=== PATIENT | male | born 1960 | race African-American/Black ===

== ENCOUNTER 2020-11-20 14:50 | Inpatient (IN) | payer SELFPAY ==
[~2020-11-20] VITALS: Ht 177.8 cm; Wt 94.3 kg
[2020-11-20] MEDS ORDERED: ASPIRIN CHEWABLE 81 MG TABLET. PO ONE (15:00)
[2020-11-20] MEDS ORDERED: IV NORMAL SALINE 1,000ML 1,000 ML IV ONE (15:00)
--- NOTE | 2020-11-20 15:06 | PHYS DOC ---
Past History Past Medical History: Diabetes, Hypertension, MO Past Surgical History: Tonsillectomy, Other Alcohol Use: None Adult General Chief Complaint Chief Complaint: CHEST PAIN HPI HPI Pt is a 60 M here for chest pain. Pt reports chest pain began upon waking at 9am and is concentrated in his left lateral pectoral region. Also reports some associated left arm tightness, episodes of diaphoresis, nausea, and feeling lightheaded. Does report he has had 2 previous heart attacks and reports his current symptoms are very similar to previous MO presentations. Denies syncopal events, or increased LE edema over the past several days. Does also admit to a PMH of DM, HTN, HLD, Alcoholism. Reports he was off alcohol for 8 years, however has been on a drinking binge over the last couple days as he reports cheating on his and subsequently being caught and going through a break-up. Also admits distant history of cocaine abuse. Denies excessive retching/vomiting, hematemesis, connective tissue disorders. Does admit to having a difficult time procuring his medications recently. Review of Systems Review of Systems See hpi. Physical Exam Physical Exam Constitutional: Well developed, well nourished, no acute distress, non-toxic appearance. complaining of pain on exam HENT: Normocephalic, atraumatic, bilateral external ears normal, oropharynx moist, no oral exudates, nose normal. Eyes: PERRLA, EOMI, conjunctiva normal, no discharge. Neck: Normal range of motion, no tenderness, supple, no stridor. Cardiovascular:Heart rate regular rhythm, no murmur. Radial pulses 2/4 bilaterally, cap refill<2seconds bilaterally, slight pain to palpation of the chest, no LE edema no carotid bruits Lungs & Thorax: Bilateral breath sounds clear to auscultation Abdomen: Bowel sounds normal, soft, no tenderness, no masses, no pulsatile masses. Skin: Warm, dry, no erythema, no rash. Back: No tenderness, no CVA tenderness. Extremities: No tenderness, no cyanosis, no clubbing, ROM intact, no edema. Neurologic: Alert and oriented X 3, normal motor function, normal sensory function, no focal deficits noted. Psychologic: Affect normal, judgement normal, mood normal. Current Patient Data Vital Signs Vital Signs Date Time Temp Pulse Resp B/P (MAP) Pulse Ox O2 Delivery O2 Flow Rate FiO2 11/20/20 14:57 97.6 116 16 156/102 (120) 100 Room Air EKG EKG EKG interpreted by me at 15:01, rate 119, sinus rhythm, normal intervals, no obvious ST elevations/depressions Radiology/Procedures Radiology/Procedures Single AP view of the chest. Comparison: None. Indication: Chest pain Findings: The heart is enlarged. There is no pneumothorax or effusion. No air space or interstitial disease. Impression: 1. No acute cardiopulmonary process. Electronically signed by: Wes Garcia MD (11/20/2020 3:25 PM) [id number] Heart Score C/O Chest Pain: Yes HEART Score for Chest Pain: HEART Score for Chest Pain Response (Comments) Value History Highly Suspicious 2 ECG Normal 0 Age >45 - < 65 1 Risk Factors >3 Risk Factors or Hx CAD 2 Total 5 Risk Factors: Risk Factors: DM, Current or recent (<one month) smoker, HTN, HLP, family history of CAD, obesity. Risk Scores: Risk Factors: DM, Current or recent (<one month) smoker, HTN, HLP, family history of CAD, obesity. Course & Med Decision Making Course & Med Decision Making Pt is a 60M presenting due to concerns of chest pain. Pt was tachycardic and hypertensive on exam. PE was non specific for any abnormalities. CBC, CMP, Tro ponin, Lipase, CXR, and EKG were ordered. Pt was given a full dose of aspirin and nitro for pain control. Initial Troponin was within normal limits and the rest of his laboratory evaluation was non specific for any abnormalities. Given patient's multiple risk factors and alarming story, heart score was discussed and admission was offered. I contacted hospitalist and discussed case at length, he agreed need for admission and accepted patient under his care for further cardiac observation. Patient updated on this and was amenable. Asymptomatic at time of admission. All questions and concerns addressed prior to admission Critical Care Time This patient required critical care. Due to the fact that the patient required a significant amount of one on one physician - patient contact time, ordering and review of studies, arranging urgent treatment with development of a management plan, evaluation of patients response to treatment with frequent reassessments, and discussions with other providers this patient required 35 minutes of critical care time. Critical care time was indicated due to the inherent instability and/or potential for instability in this patient. The critical care time that is allocated to this patient is above and beyond any time spent on any other billable procedures performed on this patient. Dragon Disclaimer Dragon Disclaimer This electronic medical record was generated, in whole or in part, using a voice recognition dictation system. Departure Departure: Impression: Primary Impression: Chest pain, rule out acute myocardial infarction Additional Impression: Alcohol abuse Disposition: ADMITTED INPATIENT Admitting Physician: Jayro Liriano Condition: STABLE Problem Qualifiers NIALL MCKEON DO Nov 20, 2020 15:06
--- NOTE | 2020-11-20 15:09 | EKG ---
[address] [address] Test Date: 2020-11-20 Test Time: 14:55:33 Pat Name: JARED العراقي Department: Room: Gender: M Chaplain: FABIAN : 1960 Requested By: NIALL MCKEON Order Number: [id number] Reading MD: Measurements Intervals [place] Rate: 119 P: 41 OK: 100 QRS: 5 QRSD: 80 T: 12 QT: 312 QTc: 439 Interpretive Statements SINUS TACHYCARDIA OTHERWISE NORMAL ECG RI6.02 No previous ECG available for comparison
[2020-11-20] MEDS ORDERED: NITROGLYCERIN SUBLINGUAL 0.4 MG BOTTLE OF 25. SL PRN ×2 (15:15→16:30)
[2020-11-20 15:27] LABS: BASO % 0 % (0-3); EOS % 0 % (0-3); HEMATOCRIT 43.2 % (39.0-53.0); HEMOGLOBIN 14.5 g/dL (13.0-17.5); LYMPH # 2.2 x10^3/uL (1.0-4.8); LYMPH % 29 % (24-48); MEAN CORPUSCULAR HEMOGLOBIN 30 pg (25-35); MEAN CORPUSCULAR HGB CONC 34 g/dL (31-37); MEAN CORPUSCULAR VOLUME 89 fL (79-100); MONO # 0.6 x10^3/uL (0.0-1.1); MONO % 7 % (0-9); NEUT # 4.8 x10^3uL (1.8-7.7); NEUT % 63 % (31-73); PLATELET COUNT 188 x10^3/uL (140-400); RED BLOOD COUNT 4.87 x10^6/uL (4.30-5.70); RED CELL DISTRIBUTION WIDTH 14.2 % (11.5-14.5); WHITE BLOOD COUNT 7.7 x10^3/uL (4.0-11.0)
--- NOTE | 2020-11-20 15:27 | RAD ---
Single AP view of the chest. Comparison: None. Indication: Chest pain Findings: The heart is enlarged. There is no pneumothorax or effusion. No air space or interstitial disease. Impression: 1. No acute cardiopulmonary process. Electronically signed by: Wes Garcia MD (11/20/2020 3:25 PM) [id number]
[2020-11-20 15:49] LABS: CALCIUM 8.9 mg/dL (8.5-10.1); CREATININE 1.4 mg/dL (0.7-1.3); POTASSIUM 3.6 mmol/L (3.5-5.1)
[2020-11-20 15:54] LABS: ALBUMIN 3.6 g/dL (3.4-5.0); ALBUMIN/GLOBULIN RATIO 0.8 (1.0-1.7); TOTAL BILIRUBIN 0.8 mg/dL (0.2-1.0)
[2020-11-20] MEDS ORDERED: ACETAMINOPHEN 500 MG TABLET PO ONE (16:15)
[2020-11-20] MEDS ORDERED: ACETAMINOPHEN 325 MG TABLET PO PRN (16:30)
[2020-11-20 19:47] VITALS: BP 122/79
[2020-11-20] MEDS ORDERED: clonazePAM 2 MG TABLET PO PRN (20:30)
[2020-11-20] MEDS ORDERED: NICO1PAT25 TD (20:33)
[2020-11-20] MEDS ORDERED: GLIM2TAB7 PO (20:33)
[2020-11-20] MEDS ORDERED: CLON2TAB PO ×2 (20:33)
[2020-11-20] MEDS ORDERED: METF-658 PO (20:33)
[2020-11-20] MEDS ORDERED: LISI1TAB37 PO (20:33)
[2020-11-20] MEDS: metFORMIN XR 500 MG TAB.ER.24H PO SCH (20:58)
[2020-11-20] MEDS: hydroCHLOROthiazide 12.5 MG CAPSULE PO SCH (20:58)
[2020-11-20] MEDS: LISINOPRIL 20 MG TABLET PO SCH (20:58)
[2020-11-20] MEDS: GLIMEPIRIDE 2 MG TABLET PO SCH (20:58)
[2020-11-20] MEDS ORDERED: clonazePAM 2 MG TABLET PO SCH (21:00)
[2020-11-20] MEDS ORDERED: NICOTINE 14MG PATCH. TD SCH (21:00)
[2020-11-20] MEDS ORDERED: NON FORMULARY ITEM (Lisinopril/Hydrochlorothiazide (Lisinopril-Hctz 20-12.5 Mg Tab) 1 TAB) PO SCH (21:00)
[2020-11-20 22:13] VITALS: BP 129/69
[2020-11-21 06:17] VITALS: BP 109/67
--- NOTE | 2020-11-21 08:03 | PDOC2 ---
CARDIAC CONSULT DATE OF CONSULT DOS: DATE: 11/21/20 TIME: 08:00 REASON FOR CONSULT Reason for Consult Chest pain REFERRING PHYSICIAN Referring Physician Dr. Olivares SOURCE Source: Chart review, Patient HPI History of Present Illness This is a 60 yo male who presented secondary to chest pain. Patient reports he woke up yesterday morning with pressure in his central chest. Associated with palpitations. [place] like his heart was beating fast. Has tingling sensation in his left arm. Was also dizzy and diaphoretic. No shortness of breath or nausea/vomiting. Patient is under a lot of stress. Recently from of 25 years and moved here from [place]. Has a history of alcoholism, but had been sober for 8 years until he had a going away green party for himself. Has been drinking for the last 3 weeks intermittently. Has a history of tachycardia. Was seen by a analytic manager about 3 years ago and started on medical therapy. Reports he ran out of the medication and never refilled. HR elevated upon arrival and has has some burst of atrial tach overnight on tele. PAST MEDICAL HISTORY Cardiovascular: HTN, MD, hyperipidemia Psych: Anxiety, Addictions (ETOH), Depression Musculoskeletal: Osteoarthritis Renal/: Chronic renal insuff Endocrine: Diabetes PAST SURGICAL HISTORY Past Surgical History: Tonsillectomy FAMILY HISTORY Family History: Hypertension SOCIAL HISTORY Smoke: <1 pack per day ALCOHOL: other (h/o heavy use. Sober 8 years, began drinking ago recently.) Drugs: None Lives: with Family CURRENT MEDICATIONS Current Medications Current Medications Aspirin (Aspirin Chewable) 324 mg 1X ONCE PO Last administered on 11/20/20at 15:11; Start 11/20/20 at 15:00; Stop 11/20/20 at 15:19; Status DC Sodium Chloride 1,000 ml @ 1,000 mls/hr 1X ONCE IV Last administered on 11/20/20at 15:11; Start 11/20/20 at 15:00; Stop 11/20/20 at 15:59; Status DC Nitroglycerin (Nitrostat) 0.4 mg PRN Q5MIN PRN SL CHEST PAIN Last administered on 11/20/20at 15:23; Start 11/20/20 at 15:15; Stop 11/20/20 at 16:21; Status DC Acetaminophen (Tylenol) 1,000 mg 1X ONCE PO Last administered on 11/20/20at 16:18; Start 11/20/20 at 16:15; Stop 11/20/20 at 16:16; Status DC Acetaminophen (Tylenol) 650 mg PRN Q4HRS PRN PO FEVER > 100.3'F; Start 11/20/20 at 16:30; Stop 11/21/20 at 16:29 Nitroglycerin (Nitrostat) 0.4 mg PRN Q5MIN PRN SL CHEST PAIN; Start 11/20/20 at 16:30; Stop 11/21/20 at 16:29 Clonazepam (KlonoPIN) 2 mg PRN Q6HRS PRN PO ANXIETY / AGITATION Last administered on 11/21/20at 06:13; Start 11/20/20 at 20:30 Clonazepam (KlonoPIN) 2 mg QHS PO Last administered on 11/20/20at 20:57; Start 11/20/20 at 21:00 Glimepiride (Amaryl) 2 mg BID PO Last administered on 11/20/20at 20:58; Start 11/20/20 at 21:00 Metformin HCl (Glucophage Xr) 1,000 mg BIDWMEALS PO ; Start 11/20/20 at 21:00 Nicotine (Nicoderm Cq 14mg Patch) 1 patch QHS TD Last administered on 11/20/20at 20:59; Start 11/20/20 at 21:00 Non-Formulary Medication (Lisinopril/ Hydrochlorothiazide (Lisinopril-Hctz 20- 12.5 Mg Tab)) 1 tab BID PO ; Start 11/20/20 at 21:00; Stop 11/20/20 at 20:40; Status DC Lisinopril (Prinivil) 20 mg BID PO Last administered on 11/20/20at 20:58; Start 11/20/20 at 21:00 Hydrochlorothiazide (Microzide) 12.5 mg BID PO Last administered on 11/20/20at 20:58; Start 11/20/20 at 21:00 Active Scripts Active Reported NICODERM CQ 14mg (Nicotine) 1 Each Patch.td24 1 Patch TD QHS Metformin Hcl Er (Metformin Hcl) 500 Mg Tab.er.24h 2 Tab PO BID Klonopin (Clonazepam) 2 Mg Tablet 1 Tab PO QHS Klonopin (Clonazepam) 2 Mg Tablet 1 Tab PO PRN Q6HRS PRN Glimepiride 2 Mg Tablet 1 Tab PO BID Lisinopril-Hctz 20-12.5 Mg Tab (Lisinopril/Hydrochlorothiazide) 1 Each Tablet 1 Tab PO BID ALLERGIES Allergies: Coded Allergies: No Known Drug Allergies (Unverified , 11/20/20) ROS Review of Systems 14 point ROS conducted with pertinent positives noted above in hPI PHYSICAL EXAM General: Alert, Oriented X3, Cooperative, No acute distress HEENT: Atraumatic, Mucous membr. moist/pink Lungs: Clear to auscultation Heart: Regular rate (SR/ST) Abdomen: Soft Extremities: No edema Skin: No rashes, No breakdown Neuro: Normal speech, Sensation intact Psych/Mental Status: Mental status NL, Mood NL MUSCULOSKELETAL: Osteoarthritic changes both hands VITALS Vital Signs Vital Signs Date Time Temp Pulse Resp B/P (MAP) Pulse Ox O2 Delivery O2 Flow Rate FiO2 11/21/20 06:17 97.8 70 18 109/67 (81) 96 Room Air LABS LABS Laboratory Tests Test 11/20/20 15:03 11/20/20 15:08 11/20/20 19:29 11/20/20 20:15 White Blood Count 7.7 x10^3/uL (4.0-11.0) Red Blood Count 4.87 x10^6/uL (4.30-5.70) Hemoglobin 14.5 g/dL (13.0-17.5) Hematocrit 43.2 % (39.0-53.0) Mean Corpuscular Volume 89 fL (79-100) Mean Corpuscular Hemoglobin 30 pg (25-35) Mean Corpuscular Hemoglobin Concent 34 g/dL (31-37) Red Cell Distribution Width 14.2 % (11.5-14.5) Platelet Count 188 x10^3/uL (140-400) Neutrophils (%) (Auto) 63 % (31-73) Lymphocytes (%) (Auto) 29 % (24-48) Monocytes (%) (Auto) 7 % (0-9) Eosinophils (%) (Auto) 0 % (0-3) Basophils (%) (Auto) 0 % (0-3) Neutrophils # (Auto) 4.8 x10^3uL (1.8-7.7) Lymphocytes # (Auto) 2.2 x10^3/uL (1.0-4.8) Monocytes # (Auto) 0.6 x10^3/uL (0.0-1.1) Eosinophils # (Auto) 0.0 x10^3/uL (0.0-0.7) Basophils # (Auto) 0.0 x10^3/uL (0.0-0.2) Sodium Level 133 mmol/L (136-145) Potassium Level 3.6 mmol/L (3.5-5.1) Chloride Level 96 mmol/L (98-107) Carbon Dioxide Level 27 mmol/L (21-32) Anion Gap 10 (6-14) Blood Urea Nitrogen 14 mg/dL (8-26) Creatinine 1.4 mg/dL (0.7-1.3) Estimated GFR (Cockcroft-Gault) 63.0 BUN/Creatinine Ratio 10 (6-20) Glucose Level 230 mg/dL (70-99) Calcium Level 8.9 mg/dL (8.5-10.1) Total Bilirubin 0.8 mg/dL (0.2-1.0) Aspartate Amino Transf (AST/SGOT) 29 U/L (15-37) Alanine Aminotransferase (ALT/SGPT) 39 U/L (16-63) Alkaline Phosphatase 89 U/L (46-116) Troponin I Quantitative < 0.017 ng/mL (0-0.055) < 0.017 ng/mL (0-0.055) Total Protein 8.0 g/dL (6.4-8.2) Albumin 3.6 g/dL (3.4-5.0) Albumin/Globulin Ratio 0.8 (1.0-1.7) Lipase 65 U/L (73-393) Glucose (Fingerstick) 253 mg/dL (70-99) 223 mg/dL (70-99) Test 11/20/20 22:40 11/21/20 07:37 Troponin I Quantitative < 0.017 ng/mL (0-0.055) Glucose (Fingerstick) 169 mg/dL (70-99) ASSESSMENT/PLAN Assessment/Plan 1. Chest pain, palpitations; atypical. AMI ruled out. Most probably secondary to #2 2. Arrhythmia; tele noted with bursts of atrial tach. H/o tachyarrhythmia; was started on rate control approximately 3 year ago, but stopped taking when his prescription ran out 3. Hypertension; controlled 4. Hyperlipidemia 5. Diabetes, II 6. CKD 7. H/o alcoholism; has been sober until recently. from of 25 years and moved here from [place] 8. Tobaccoism; discussed/encouraged cessation Recommendations Start metoprolol for HR control TSH, lipids Consider outpatient stress test and event monitor Is working on getting insurance coverage Follow up in our office with FINA Thurman APRN Nov 21, 2020 08:03
[2020-11-21] MEDS: GLIMEPIRIDE 2 MG TABLET PO SCH (08:23)
[2020-11-21] MEDS: hydroCHLOROthiazide 12.5 MG CAPSULE PO SCH (08:23)
[2020-11-21] MEDS: metFORMIN XR 500 MG TAB.ER.24H PO SCH (08:23)
[2020-11-21] MEDS: LISINOPRIL 20 MG TABLET PO SCH (08:24)
[2020-11-21] MEDS ORDERED: ASPIRIN ENTERIC COATED 81 MG TABLET.DR. PO SCH (09:00)
[2020-11-21] MEDS ORDERED: METOPROLOL TART IMMED RELEASE 25 MG TABLET. PO SCH (09:00)
[2020-11-21 09:13] VITALS: BP 109/67
--- NOTE | 2020-11-21 11:25 | HP ---
ATTENDING PHYSICIAN: Dr. Liriano. CHIEF COMPLAINT: Chest pain and generalized lightheadedness. HISTORY OF PRESENT ILLNESS: The patient is a 60-year-old gentleman with underlying depression, anxiety, hypertension and diabetes. He also drinks alcohol to excess. He presented to the ED with lateral chest wall pain related to recent binge drinking. He also ran out of his medicines, he has not taken his blood pressure meds. He had generalized weakness. He was admitted for further evaluation, restarting medications and serial cardiac enzymes. PAST MEDICAL HISTORY: Significant for type 2 diabetes, hypertension, HI, tonsillectomy. He has pain addiction, currently getting Suboxone through a pain specialist that is out of town. CURRENT MEDICATIONS: Reviewed. ALLERGIES: He has no known drug allergies. He had been noncompliant. He was scheduled to take Suboxone along with glimepiride, lisinopril, metoprolol. It is unclear how long he has ran out of his medications. He is a smoker. He drinks vodka. FAMILY HISTORY: Noncontributory. SOCIAL HISTORY: Recently from his . He moved here from [place]. He has a son living in town. REVIEW OF SYSTEMS: All other systems were reviewed and turned to be negative. PHYSICAL EXAMINATION: GENERAL: When I saw him this is a pleasant, alert gentleman. INITIAL VITAL SIGNS: Showed a blood pressure of 129/69 mmHg. He was afebrile, pulse 76 and regular, oxygen saturation 97% on room air. HEENT: Head is without trauma. Pupils are reactive. Sclerae nonicteric. Oropharynx clear. NECK: Supple. No bruits identified. LUNGS: Otherwise clear. HEART: Regular heart tones. ABDOMEN: Soft. No guarding or rebound tenderness. EXTREMITIES: Without edema. NEUROLOGIC: Focally intact. No deficits. PERTINENT LABORATORY DATA: EKG is nondiagnostic. Hemoglobin 14.5, white count 7700. Nonfasting blood sugar is 169. First set of cardiac enzymes negative for coronary ischemia. Sodium was 133 mEq, potassium 3.6, creatinine 1.4 mg/dL. ASSESSMENT: 1. This 60-year-old gentleman has atypical chest pain, noncardiac in nature. 2. Gastroesophageal reflux and alcoholic gastritis. 3. Chronic alcoholism. 4. Hypertension. 5. History of substance abuse, on Suboxone. 6. Noncompliance. 7. Type 2 diabetes. 8. Chronic alcoholism and chronic obstructive pulmonary disease. PLAN: 1. Admit to the inpatient unit. 2. Serial cardiac enzymes. 3. Cardiology consultation has already been obtained by ER physician. He will have that later in the morning. 4. Continue home meds. 5. I will write for home meds and prescriptions while he is here. GILMER/ANTHONY DR: Ceci TID: [id number]
[2020-11-21 14:27] LABS: THYROID STIM HORMONE (TSH) 1.952 uIU/mL (0.358-3.740)
--- NOTE | 2020-11-21 20:19 | DS ---
DATE OF DISCHARGE: 11/21/2020 ATTENDING PHYSICIAN: Dr. Liriano. DATE OF ADMISSION: 11/20/2020 DATE OF DISCHARGE: 11/21/2020 FINAL DISCHARGE DIAGNOSES: 1. Atypical chest pain, coronary ischemia ruled out. 2. Chronic obstructive pulmonary disease. 3. Type 2 diabetes. 4. Hypertension. 5. Chronic alcoholism. 6. Chronic pain medications addiction. 7. Noncompliance with medications. HISTORY OF PRESENT ILLNESS: The patient is a 60-year-old gentleman recently moved here from out of town. He ran out of his medication. He was binge drinking and he had atypical chest pain. He was admitted for further treatment and evaluation to rule out. PHYSICAL EXAMINATION: Please see my dictated note. PERTINENT LABORATORY AND X-RAY STUDIES: CBC within normal range. Chemistry panel unremarkable. Nonfasting blood sugar 169. Cardiac enzyme negative for coronary ischemia. Chest x-ray was clear and EKG is nondiagnostic. HOSPITAL COURSE: The patient was admitted. Serial enzymes were drawn. Home medications were restarted. Cardiology consultation was entertained. It is not cardiac in nature. Therefore, on the second hospital day, I set boundaries for him. He needs to find the pain specialist to continue his Suboxone. I wrote scripts for metoprolol 200 mg p.o. daily, lisinopril 10 mg p.o. daily, Klonopin 1 mg daily #30 with no refills. A very small script for oxycodone 30 mg b.i.d., #10 with no refills. I recommended starting antidepressant therapy with Prozac 40 mg p.o. daily and I suggest that he get established with a primary care physician for followup. I will write for refills for his Prozac, blood pressure meals as well as his diabetes regimen. Strong encouragement to avoid further alcohol and tobacco use. Long discussion regarding depression and anxiety. He is reasonably intelligent. He understands whether or not he will follow through. He remains to be seen. In any event, the patient was discharged from our hospital in stable condition with explicit instructions and followup care.. LONG VILLAGOMEZ: Ceci TID: [id number]
[2020-11-21] MEDS ORDERED: LISINOPRIL 10 MG TABLET PO SCH (21:00)
== END 2020-11-21 09:50 | disposition home or self-care (01) | DRG 313 ==
LOC: ER 14:50 → 1 SOUTH 16:16 → OBSVTOIN 16:16
PROVIDERS: ADMIT Internal Medicine; ATTEND Internal Medicine
DX: R07.89 Other chest pain (principal); E78.5 Hyperlipidemia, unspecified; F41.9 Anxiety disorder, unspecified; E11.22 Type 2 diabetes mellitus with diabetic chronic kidney disease; F32.9 Major depressive disorder, single episode, unspecified; M19.90 Unspecified osteoarthritis, unspecified site; I12.9 Hypertensive chronic kidney disease with stage 1 through stage 4 chronic kidney disease, or unspecified chronic kidney disease; K21.9 Gastro-esophageal reflux disease without esophagitis; K29.20 Alcoholic gastritis without bleeding; J44.9 Chronic obstructive pulmonary disease, unspecified; N18.9 Chronic kidney disease, unspecified; F17.210 Nicotine dependence, cigarettes, uncomplicated; G89.29 Other chronic pain; F10.21 Alcohol dependence, in remission; Z91.19 Patient's noncompliance with other medical treatment and regimen; Z91.14 Patient's other noncompliance with medication regimen; Z82.49 Family history of ischemic heart disease and other diseases of the circulatory system; I25.2 Old myocardial infarction; Z79.899 Other long term (current) drug therapy
CPT/HCPCS: 36415; 71045; 80053; 80061; 82947; 83690; 84443; 84484; 85025; 93005; 96360; 99285-25; J7030

== ENCOUNTER 2020-12-07 10:55 | Emergency (ER) | payer SELFPAY ==
[~2020-12-07] VITALS: Ht 177.8 cm; Wt 94.3 kg
[~2020-12-07 10:55] MED LIST: CLON2TAB PO; GLIM2TAB7 PO; LISI1TAB37 PO; METF-658 PO; NICO1PAT25 TD
--- NOTE | 2020-12-07 11:22 | PHYS DOC ---
Past History Past Medical History: Alcoholism, Diabetes, Hypertension, MA Past Surgical History: Tonsillectomy, Other Alcohol Use: None General Adult EDM: Chief Complaint: CHEST PAIN HPI: HPI: 60-year-old male presents with chest pain. He describes it as a central heaviness. Patient feels jittery. The patient got addicted to opiate pain medication when he lived in [place]. To get off of these pills he went on Suboxone. He was weaning down his Suboxone when he came to [place]. He is out of them now. He did have short course of opiates prescribed to him out of concern for withdrawal after running out of the Suboxone. He has not had any opiates or Suboxone in 5 days. Patient denies fever or chills. No cardiac his tory. Review of Systems: Review of Systems: Constitutional: Denies fever or chills Eyes: Denies change in visual acuity HENT: Denies nasal congestion or sore throat Respiratory: Denies cough or shortness of breath Cardiovascular: Chest pain GI: Denies abdominal pain, nausea, vomiting, bloody stools or diarrhea : Denies dysuria Musculoskeletal: Denies back pain or joint pain Integument: Denies rash Neurologic: Denies headache, focal weakness or sensory changes Endocrine: Denies polyuria or polydipsia Lymphatic: Denies swollen glands Psychiatric: anxiety Allergies: Allergies: Allergies Coded Allergies Type Severity Reaction Last Updated Verified No Known Drug Allergies 11/20/20 No Physical Exam: PE: Constitutional: Well developed, well nourished, no acute distress, non-toxic appearance. [] HENT: Normocephalic, atraumatic, bilateral external ears normal, oropharynx moist, no oral exudates, nose normal. [] Eyes: PERRLA, EOMI, conjunctiva normal, no discharge. [] Neck: Normal range of motion, no tenderness, supple, no stridor. [] Cardiovascular:Heart rate regular rhythm, no murmur [] Lungs & Thorax: Bilateral breath sounds clear to auscultation [] Abdomen: Bowel sounds normal, soft, no tenderness, no masses, no pulsatile masses. [] Skin: Warm, dry, no erythema, no rash. [] Back: No tenderness, no CVA tenderness. [] Extremities: No tenderness, no cyanosis, no clubbing, ROM intact, no edema. [] Neurologic: Alert and oriented X 3, normal motor function, normal sensory function, no focal deficits noted. [] Psychologic: Affect normal, judgement normal, mood normal. [] Current Patient Data: Vital Signs: Vital Signs Date Time Temp Pulse Resp B/P (MAP) Pulse Ox O2 Delivery O2 Flow Rate FiO2 12/07/20 11:07 98.2 82 20 14/80 (58) 98 Room Air EKG: EKG: Sinus rhythm, rate 82, normal axis, no ST elevation or depression. [] Radiology/Procedures: Radiology/Procedures: [] Impressions: AP chest. HISTORY: Chest pain AP view was taken of the chest. Lungs are clear. Heart is normal in size. There is no pleural effusion. IMPRESSION: 1. No acute chest disease. Electronically signed by: Marielena Boggs MD (12/07/2020 12:03 PM) [id number] DICTATED AND SIGNED BY: MARIELENA BOGGS MD DATE: 12/07/20 1202 CC: JT ALVAREZ DO; NON,STAFF ~MTH0 0 Heart Score: C/O Chest Pain: Yes HEART Score for Chest Pain: HEART Score for Chest Pain Response (Comments) Value History Slighlty/Non-Suspicious 0 ECG Normal 0 Age >45 - < 65 1 Risk Factors 1 or 2 Risk Factors 1 Troponin < Normal Limit 0 Total 2 Risk Factors: Risk Factors: DM, Current or recent (<one month) smoker, HTN, HLP, family history of CAD, obesity. Risk Scores: Score 0 - 3: 2.5% MACE over next 6 weeks - Discharge Home Score 4 - 6: 20.3% MACE over next 6 weeks - Admit for Clinical Observation Score 7 - 10: 72.7% MACE over next 6 weeks - Early Invasive Strategies Course & Med Decision Making: Course & Med Decision Making Pertinent Labs and Imaging studies reviewed. (See chart for details) The patient's EKG is unremarkable. His labs are unremarkable. His troponin is negative. After long discussion with the patient, he is most concerned with withdrawal potential. I explained to the patient that he is through the physiological withdrawal at this time. His vitals are all normal. Now he does has to deal with the psychological component of addiction. The patient would like to stay off of opiates and Suboxone. I have encouraged him that he could stay off these medications from this point on and it would not be negative effects to his health. He is stable for discharge at this time. [] Dragon Disclaimer: Dragon Disclaimer: This electronic medical record was generated, in whole or in part, using a voice recognition dictation system. Departure Departure: Impression: Primary Impression: Chest pain Qualified Codes: R07.89 - Other chest pain Additional Impression: Opiate withdrawal Disposition: HOME / SELF CARE / HOMELESS Condition: STABLE Referrals: NON,STAFF (PCP) Patient Instructions: Chest Pain (Nonspecific), [id number], Narcotic Withdrawal JT ALVAREZ DO December 07, 2020 11:22
[2020-12-07 11:52] LABS: BASO % 0 % (0-3); EOS % 1 % (0-3); HEMOGLOBIN 14.1 g/dL (13.0-17.5); LYMPH # 1.7 x10^3/uL (1.0-4.8); LYMPH % 32 % (24-48); MEAN CORPUSCULAR HEMOGLOBIN 30 pg (25-35); MEAN CORPUSCULAR HGB CONC 34 g/dL (31-37); MEAN CORPUSCULAR VOLUME 89 fL (79-100); MONO # 0.4 x10^3/uL (0.0-1.1); MONO % 7 % (0-9); NEUT # 3.1 x10^3uL (1.8-7.7); NEUT % 60 % (31-73); PLATELET COUNT 158 x10^3/uL (140-400); RED BLOOD COUNT 4.72 x10^6/uL (4.30-5.70); RED CELL DISTRIBUTION WIDTH 15.5 % (11.5-14.5); WHITE BLOOD COUNT 5.3 x10^3/uL (4.0-11.0)
[2020-12-07 12:04] LABS: CALCIUM 8.6 mg/dL (8.5-10.1); CREATININE 1.2 mg/dL (0.7-1.3); GFR 75.2; POTASSIUM 3.6 mmol/L (3.5-5.1)
--- NOTE | 2020-12-07 12:05 | RAD ---
AP chest. HISTORY: Chest pain AP view was taken of the chest. Lungs are clear. Heart is normal in size. There is no pleural effusio n. IMPRESSION: 1. No acute chest disease. Electronically signed by: Kai Subramanian MD (12/07/2020 12:03 PM) [id number]
[2020-12-07 12:07] LABS: ALBUMIN 3.5 g/dL (3.4-5.0); TOTAL BILIRUBIN 0.9 mg/dL (0.2-1.0); TOTAL PROTEIN 7.1 g/dL (6.4-8.2)
[2020-12-07 12:09] VITALS: BP 160/94
--- NOTE | 2020-12-07 19:49 | EKG ---
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
== END 2020-12-07 12:45 | disposition home or self-care (01) ==
LOC: ER 10:55
DX: F11.23 Opioid dependence with withdrawal (principal); R07.89 Other chest pain; T40.0X5A Adverse effect of opium, initial encounter; E11.9 Type 2 diabetes mellitus without complications; I10 Essential (primary) hypertension; I25.2 Old myocardial infarction
CPT/HCPCS: 36415; 71045; 80053; 84484; 85025; 93005; 99285-25

== ENCOUNTER 2020-12-11 01:18 | Emergency (ER) | payer SELFPAY ==
[~2020-12-11] VITALS: Ht 177.8 cm; Wt 91.0 kg
--- NOTE | 2020-12-11 01:22 | PHYS DOC ---
Past History Past Medical History: Alcoholism, Diabetes, Hypertension, [place], Other (Opioid and benzodiazepine dependence) Past Surgical History: Tonsillectomy, Other Alcohol Use: None Adult General Chief Complaint Chief Complaint: SHORTNESS OF BREATH HPI HPI Patient is a 60-year-old male presenting for anxiety and shortness of breath. Was seen at our facility 4 days ago and was endorsing chest pain at that time. Had comprehensive ER work-up that was overall nonconcerning, chest pain was likely due to psychosocial effects of withdrawing from chronic opioid pain medication. Reports today when trying to sleep he got very anxious. States he is continuing to withdrawal from being off all opioid pain medications, had history of taking Suboxone and was recently prescribed oxycodone from hospitalist physician on ER departure, he has subsequently run out of oxycodone and all other narcotics for past x2 weeks. Also states he is withdrawing from benzodiazepine medications. Was given 30-day prescription of 1 mg clonazepam to be taken daily dispensed 11/23/2020, he states he is out of all of this medication at present and wanting a refill. No fever, recent sick contacts or other concerning signs or symptoms of acute disease. He reports history of OH, high blood pressure, insulin-dependent diabetes and high cholesterol. Reports he has been off all medications since relocating from [place] and is currently attending outpatient primary care visit to establish care Review of Systems Review of Systems Fourteen body systems of review of systems have been reviewed. See HPI for pertcarole solo positives and negative responses, other guajardo all other systems are negative, non-pertinent or non-contributory Allergies Allergies Allergies Coded Allergies Type Severity Reaction Last Updated Verified No Known Drug Allergies 11/20/20 No Physical Exam Physical Exam Constitutional: Well developed, well nourished, no acute distress, non-toxic appearance. HENT: Normocephalic, atraumatic, bilateral external ears normal, oropharynx moist, no oral exudates, nose normal. Eyes: PERRLA, EOMI, conjunctiva normal, no discharge. Neck: Normal range of motion, no tenderness, supple, no stridor. Cardiovascular: Heart rate regular, sinus rhythm, no murmurs rubs or gallops Lungs & Thorax: Bilateral breath sounds clear to auscultation Abdomen: Bowel sounds normal, soft, no tenderness, no masses, no pulsatile masses. Nonsurgical abdomen, no peritoneal signs Skin: Warm, dry, no erythema, no rash. Back: No tenderness, no CVA tenderness. Extremities: No tenderness, no cyanosis, no clubbing, ROM intact, no edema. Neurologic: Alert and oriented X 3, grossly normal motor & sensory function, no focal deficits noted. Psychologic: Affect normal, judgement normal, mood normal. Current Patient Data Vital Signs Vital Signs Date Time Temp Pulse Resp B/P (MAP) Pulse Ox O2 Delivery O2 Flow Rate FiO2 12/11/20 01:20 97.8 75 20 162/112 (129) 99 Room Air Vital Signs Date Time Temp Pulse Resp B/P (MAP) Pulse Ox O2 Delivery O2 Flow Rate FiO2 12/11/20 01:20 97.8 75 20 162/112 (129) 99 Room Air Lab Results Laboratory Tests Test 12/11/20 01:52 White Blood Count 8.0 x10^3/uL Red Blood Count 4.85 x10^6/uL Hemoglobin 14.5 g/dL Hematocrit 43.4 % Mean Corpuscular Volume 89 fL Mean Corpuscular Hemoglobin 30 pg Mean Corpuscular Hemoglobin Concent 33 g/dL Red Cell Distribution Width 15.9 % Platelet Count 152 x10^3/uL Neutrophils (%) (Auto) 53 % Lymphocytes (%) (Auto) 39 % Monocytes (%) (Auto) 8 % Eosinophils (%) (Auto) 1 % Basophils (%) (Auto) 0 % Neutrophils # (Auto) 4.2 x10^3uL Lymphocytes # (Auto) 3.1 x10^3/uL Monocytes # (Auto) 0.7 x10^3/uL Eosinophils # (Auto) 0.0 x10^3/uL Basophils # (Auto) 0.0 x10^3/uL Sodium Level 140 mmol/L Potassium Level 3.3 mmol/L Chloride Level 103 mmol/L Carbon Dioxide Level 25 mmol/L Anion Gap 12 Blood Urea Nitrogen 6 mg/dL Creatinine 1.1 mg/dL Estimated GFR (Cockcroft-Gault) 83.2 BUN/Creatinine Ratio 5 Glucose Level 110 mg/dL Calcium Level 8.9 mg/dL Total Bilirubin 1.0 mg/dL Aspartate Amino Transf (AST/SGOT) 25 U/L Alanine Aminotransferase (ALT/SGPT) 33 U/L Alkaline Phosphatase 66 U/L Troponin I Quantitative < 0.017 ng/mL Total Protein 6.9 g/dL Albumin 3.5 g/dL Albumin/Globulin Ratio 1.0 Current Medications Medications (Trade) Dose Ordered Sig/Shahrzad Route PRN Reason Start Time Stop Time Status Last Admin Dose Admin Aspirin (Abdi Aspirin) 325 mg 1X ONCE PO 12/11/20 01:45 12/11/20 01:46 DC 12/11/20 01:48 Atorvastatin Calcium (Lipitor) 20 mg QHS PO 12/11/20 02:14 12/11/20 02:33 Metformin HCl (Glucophage Xr) 500 mg DAILYWBKFT PO 12/11/20 02:14 12/11/20 02:24 Lisinopril (Prinivil) 10 mg 1X ONCE PO 12/11/20 01:45 12/11/20 01:46 DC 12/11/20 01:50 Hydroxyzine HCl (Atarax) 25 mg PRN Q6HRS PRN PO ITCHING 12/11/20 01:45 12/11/20 01:50 Potassium Chloride (Klor-Con) 40 meq 1X ONCE PO 12/11/20 02:45 12/11/20 02:46 DC EKG EKG EKG ordered and interpreted by myself at 0150 hrs. as sinus rhythm at 62 bpm, unremarkable intervals, no axis deviation, no acute ischemic findings, no STEMI Radiology/Procedures Radiology/Procedures INDICATION: Reason: shob / Spl. Instructions: / History: COMPARISON: December 07, 2020 FINDINGS: Single view of chest obtained. No focal airspace consolidation. Cardiomediastinal contour unremarkable. No acute osseous abnormality. IMPRESSION: * No focal airspace consolidation or edema. Electronically signed by: Devon Herrmann MD (12/11/2020 4:36 AM) [id number] Heart Score C/O Chest Pain: No HEART Score for Chest Pain: HEART Score for Chest Pain Response (Comments) Value History Slighlty/Non-Suspicious 0 ECG Normal 0 Age >45 - < 65 1 Risk Factors >3 Risk Factors or Hx CAD 2 Troponin < Normal Limit 0 Total 3 Risk Factors: Risk Factors: DM, Current or recent (<one month) smoker, HTN, HLP, family hist ory of CAD, obesity. Risk Scores: Risk Factors: DM, Current or recent (<one month) smoker, HTN, HLP, family history of CAD, obesity. Course & Med Decision Making Course & Med Decision Making Hypertensive otherwise vital signs stable. HPI and physical exam nonconcerning for any emergent or surgical issues. Comprehensive ER work-up obtained and nonconcerning. Discussed patient's likely presenting symptoms are psychosocial and due to the fact that he is run out of recent prescription of benzodiazepines and has been out of opioid pain medication for past 2 weeks I disclosed that there were no obvious emergent or surgical findings from ER work-up today. He has no home medications since his move, I have refilled pertinent medications for his serious comorbidities today. Vistaril was given with improvement in anxiety, I will write short-term prescription for this I advised patient to follow-up with primary care physician in outpatient setting and if needed, see local health department for further assistance as needed to get a simulated to the local area I discussed and educated patient on strict return precautions that should bring him back to the ER for evaluation should they arise prior to outpatient follow- up with good understanding by patient, all questions and concerns addressed prior to your departure Susan Disclaimer Dragon Disclaimer This electronic medical record was generated, in whole or in part, using a voice recognition dictation system. Departure Departure: Impression: Primary Impression: Anxiety about health Additional Impressions: HTN (hypertension) History of OH (myocardial infarction) Type 2 diabetes mellitus Disposition: HOME / SELF CARE / HOMELESS Condition: STABLE Referrals: PCP,UNKNOWN (PCP) Additional Instructions: As discussed prior to your departure, you were hypertensive but otherwise vitals and physical exam are unremarkable. Your comprehensive ER work-up did not show any emergent or surgical findings. As disclosed, it is recommended that you follow-up and establish with local primary care provider for your numerous complaints and comorbidities. I have provided you with several prescriptions today for the said comorbidities that you should take as prescribed to completion. You are likely suffering from opioid withdrawals in the psychosocial effects of this having been off of these for past 2 weeks. It is also likely that you were experiencing withdrawals from benzodiazepine use as well. Because of this, it is especially important for you to follow-up with [facility] care provider and health department as discussed at length for continuity of care in outpatient setting. If any concerning signs or symptoms present prior to outpatient follow-up please do not hesitate to come back for repeat evaluation. It was a pleasure to take care of you and I wish you the best going forward Scripts Hydroxyzine Pamoate (VISTARIL) 25 Mg Capsule 1 CAP PO TID for anxiety for 7 Days, #21 CAP 1 Refill Prov: NIALL MCKEON DO 12/11/20 Atorvastatin Calcium (ATORVASTATIN CALCIUM) 40 Mg Tablet 1 TAB PO DAILY for CHOLESTEROL, #30 TAB 0 Refills Prov: NIALL MCKEON DO 12/11/20 Lisinopril (LISINOPRIL) 20 Mg Tablet 1 TAB PO DAILY for HTN, #30 TAB 0 Refills Prov: NIALL MCKEON DO 12/11/20 Metformin Hcl (METFORMIN HCL ER) 500 Mg Tab.er.24h 1 TAB PO BID for DIABETES, #60 TAB 0 Refills Prov: NIALL MCKEON DO 12/11/20 Aspirin (ASPIRIN) 81 Mg Tab.chew 81 MG PO DAILY for CAD, #30 TAB Prov: NIALL MCKEON DO 12/11/20 Problem Qualifiers NIALL MCKEON DO December 11, 2020 01:22
[2020-12-11] MEDS ORDERED: METF-658 PO (01:45)
[2020-12-11] MEDS ORDERED: ATOR40TA59 PO (01:45)
[2020-12-11] MEDS ORDERED: LISI20TA18 PO (01:45)
[2020-12-11] MEDS ORDERED: LISINOPRIL 10 MG TABLET PO ONE (01:45)
[2020-12-11] MEDS ORDERED: hydrOXYzine HCL 25 MG TABLET PO PRN (01:45)
[2020-12-11] MEDS ORDERED: ASPIRIN 325 MG TABLET PO ONE (01:45)
[2020-12-11] MEDS ORDERED: ASPI-630 PO (01:45)
[2020-12-11 02:14] LABS: BASO % 0 % (0-3); EOS % 1 % (0-3); HEMATOCRIT 43.4 % (39.0-53.0); HEMOGLOBIN 14.5 g/dL (13.0-17.5); LYMPH # 3.1 x10^3/uL (1.0-4.8); LYMPH % 39 % (24-48); MEAN CORPUSCULAR HEMOGLOBIN 30 pg (25-35); MEAN CORPUSCULAR HGB CONC 33 g/dL (31-37); MEAN CORPUSCULAR VOLUME 89 fL (79-100); MONO # 0.7 x10^3/uL (0.0-1.1); MONO % 8 % (0-9); NEUT # 4.2 x10^3uL (1.8-7.7); NEUT % 53 % (31-73); PLATELET COUNT 152 x10^3/uL (140-400); RED BLOOD COUNT 4.85 x10^6/uL (4.30-5.70); RED CELL DISTRIBUTION WIDTH 15.9 % (11.5-14.5)
[2020-12-11] MEDS ORDERED: ATORVASTATIN CALCIUM 20 MG TABLET PO SCH (02:14)
[2020-12-11] MEDS ORDERED: metFORMIN XR 500 MG TAB.ER.24H PO SCH (02:14)
[2020-12-11 02:23] LABS: CALCIUM 8.9 mg/dL (8.5-10.1); CREATININE 1.1 mg/dL (0.7-1.3); GFR 83.2; POTASSIUM 3.3 mmol/L (3.5-5.1)
[2020-12-11 02:29] LABS: ALBUMIN 3.5 g/dL (3.4-5.0); TOTAL PROTEIN 6.9 g/dL (6.4-8.2)
[2020-12-11] MEDS ORDERED: POTASSIUM CHLORIDE 20 MEQ TABLET.ER. PO ONE (02:45)
[2020-12-11] MEDS ORDERED: HYDR25CA PO (02:54)
[2020-12-11 02:57] VITALS: BP 162/89
--- NOTE | 2020-12-11 04:38 | RAD ---
INDICATION: Reason: shob / Spl. Instructions: / History: COMPARISON: December 07, 2020 FINDINGS: Single view of chest obtained. No focal airspace consolidation. Cardiomediastinal contour unremarkable. No acute osseous abnormality. IMPRESSION: * No focal airspace consolidation or edema. Electronically signed by: Devon Herrmann MD (12/11/2020 4:36 AM) [id number]
--- NOTE | 2020-12-11 04:57 | EKG ---
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
== END 2020-12-11 03:23 | disposition home or self-care (01) ==
LOC: ER 01:18
DX: F41.9 Anxiety disorder, unspecified (principal); I10 Essential (primary) hypertension; I25.2 Old myocardial infarction; E11.9 Type 2 diabetes mellitus without complications; F10.20 Alcohol dependence, uncomplicated; F13.20 Sedative, hypnotic or anxiolytic dependence, uncomplicated; F11.20 Opioid dependence, uncomplicated; E78.00 Pure hypercholesterolemia, unspecified; Y90.9 Presence of alcohol in blood, level not specified
CPT/HCPCS: 36415; 71045; 80053; 84484; 85025; 93005; 99285-25

== ENCOUNTER 2020-12-15 10:16 | Emergency (ER) | payer SELFPAY ==
[~2020-12-15] VITALS: Ht 177.8 cm; Wt 90.4 kg
[~2020-12-15 10:16] MED LIST changes: +ASPI-630 PO; +ATOR40TA59 PO; +HYDR25CA PO; +LISI20TA18 PO
--- NOTE | 2020-12-15 10:22 | PHYS DOC ---
Past History Past Medical History: Alcoholism, Diabetes, Hypertension, [place], Other Past Surgical History: Tonsillectomy, Other Alcohol Use: None Adult General Chief Complaint Chief Complaint: WITHDRAWAL HPI HPI Patient is a 60-year-old male who presents for anxiety. He was seen at our facility 4 days ago, recently moved here from [place] and was addicted to opiates and benzodiazepines. He has since been without both for approximately 2-3 weeks and has been withdrawing in outpatient setting. He has numerous comorbid conditions such as jgt-[id number]-[id number] diabetes, hypertension, previous MN that he has not been taking medicine for. I saw and evaluated patient 4 days ago and refilled pertinent medications for him and stressed need for close PCP follow-up to establish care based on his ongoing complaints that are not emergent in nature. He did not fill any medication except for Atarax for anxiety. Reports he has been taking this as prescribed on the bottle and reports that his recommended he take Benadryl in addition to help him sleep. He reports taking "6-9" unknown dose of Benadryl daily in conjunction with prescribed Atarax. He reports feeling agitated and his anxiety is worse, reports he has not been able to sleep or eat. He also found out his has been cheating on him and wants to be tested for HIV today. No fever, vision changes, trauma or falls, chest pain, ripping or tearing chest sensation, shortness of breath, abdominal pain, urinary issues such as retention or dysuria Review of Systems Review of Systems Fourteen body systems of review of systems have been reviewed. See HPI for pertinent positives and negative responses, other guajardo all other systems are negative, non-pertinent or non-contributory Allergies Allergies Allergies Coded Allergies Type Severity Reaction Last Updated Verified No Known Drug Allergies 11/20/20 No Physical Exam Physical Exam Constitutional: Well developed, well nourished, no acute distress, non-toxic appearance. HENT: Normocephalic, atraumatic, bilateral external ears normal, oropharynx moist, no oral exudates, nose normal. Eyes: PERRLA, EOMI, conjunctiva normal, no discharge. Neck: Normal range of motion, no tenderness, supple, no stridor. Cardiovascular: Heart rate regular, sinus rhythm, no murmurs rubs or gallops Lungs & Thorax: Bilateral breath sounds clear to auscultation Abdomen: Bowel sounds normal, soft, no tenderness, no masses, no pulsatile masses. Nonsurgical abdomen, no peritoneal signs Skin: Warm, dry, no erythema, no rash. Back: No tenderness, no CVA tenderness. Extremities: No tenderness, no cyanosis, no clubbing, ROM intact, no edema. Neurologic: Alert and oriented X 3, grossly normal motor & sensory function, no focal deficits noted. Psychologic: Anxious affect and mood Current Patient Data Vital Signs Vital Signs Date Time Temp Pulse Resp B/P (MAP) Pulse Ox O2 Delivery O2 Flow Rate FiO2 12/15/20 10:20 98.5 84 24 171/117 (135) 97 Room Air Vital Signs Date Time Temp Pulse Resp B/P (MAP) Pulse Ox O2 Delivery O2 Flow Rate FiO2 12/15/20 11:27 80 24 190/117 (141) 97 Room Air 12/15/20 10:20 98.5 Lab Results Laboratory Tests Test 12/15/20 10:55 White Blood Count 7.0 x10^3/uL Red Blood Count 5.05 x10^6/uL Hemoglobin 15.2 g/dL Hematocrit 44.6 % Mean Corpuscular Volume 88 fL Mean Corpuscular Hemoglobin 30 pg Mean Corpuscular Hemoglobin Concent 34 g/dL Red Cell Distribution Width 15.8 % Platelet Count 168 x10^3/uL Neutrophils (%) (Auto) 69 % Lymphocytes (%) (Auto) 23 % Monocytes (%) (Auto) 8 % Eosinophils (%) (Auto) 0 % Basophils (%) (Auto) 0 % Neutrophils # (Auto) 4.8 x10^3uL Lymphocytes # (Auto) 1.6 x10^3/uL Monocytes # (Auto) 0.5 x10^3/uL Eosinophils # (Auto) 0.0 x10^3/uL Basophils # (Auto) 0.0 x10^3/uL Sodium Level 135 mmol/L Potassium Level 3.6 mmol/L Chloride Level 98 mmol/L Carbon Dioxide Level 23 mmol/L Anion Gap 14 Blood Urea Nitrogen 8 mg/dL Creatinine 1.1 mg/dL Estimated GFR (Cockcroft-Gault) 83.2 Glucose Level 192 mg/dL Calcium Level 8.9 mg/dL Troponin I Quantitative < 0.017 ng/mL Current Medications Medications (Trade) Dose Ordered Sig/Shahrzad Route PRN Reason Start Time Stop Time Status Last Admin Dose Admin Lisinopril (Prinivil) 20 mg 1X ONCE PO 12/15/20 11:15 12/15/20 11:16 DC 12/15/20 11:26 EKG EKG EKG ordered and interpreted by myself at 1100 hrs. as sinus rhythm at 83 bpm, unremarkable intervals, no axis deviation, no acute ischemic findings, no STEMI Radiology/Procedures Radiology/Procedures [] Heart Score C/O Chest Pain: No HEART Score for Chest Pain: HEART Score for Chest Pain Response (Comments) Value History Slighlty/Non-Suspicious 0 ECG Normal 0 Age >45 - < 65 1 Risk Factors >3 Risk Factors or Hx CAD 2 Troponin < Normal Limit 0 Total 3 Risk Factors: Risk Factors: DM, Current or recent (<one month) smoker, HTN, HLP, family history of CAD, obesity. Risk Scores: Risk Factors: DM, Current or recent (<one month) smoker, HTN, HLP, family history of CAD, obesity. Course & Med Decision Making Course & Med Decision Making Hypertensive otherwise hemodynamically stable. HPI and physical exam nonconcerning for emergent or surgical findings Patient requesting HIV and syphilis testing as he is concerned his is cheating on him, HIV and syphilis ordered and pending Patient has not been taking home blood pressure medications despite having these and Metformin at home, I advised him he needs to start taking these I personally write numerous prescriptions for aspirin, Metformin, blood pressure medications etc. at last visit. Patient did not fill any except for Atarax. He has been using Atarax in addition to more Benadryl than he showed which is likely contributing to his symptoms. No signs of anticholinergic toxicity today but educated patient extensively on need to comply with prescribed medications and only take medications as prescribed by physicians Patient still anxious and wanting medication for anxiety before departure, I refused. Patient still dealing with psychosocial effects of coming off opioids and benzodiazepines, he is well outside the window for withdrawals and this is all psychological at this point I discussed and stressed the need for him to follow-up with primary care physician as his numerous visits are best treated in an outpatient setting with someone who can provide him continuity of care. Strict return precautions were discussed with good understanding by patient, all questions and concerns addressed prior to your departure Dragon Disclaimer Dragon Disclaimer This electronic medical record was generated, in whole or in part, using a voice recognition dictation system. Departure Departure: Impression: Primary Impression: Anxiety Additional Impressions: Medical non-compliance HTN (hypertension) Disposition: HOME / SELF CARE / HOMELESS Condition: STABLE Referrals: PCP,UNKNOWN (PCP) Additional Instructions: As discussed prior to ER departure, your blood pressure was elevated and this is likely due to the fact that you are not taking your lisinopril at home. You need to take this as prescribed to ensure tighter control of your blood pressure. Your physical exam and ER work-up was nonconcerning. You are most likely experiencing anxiety and have numerous complaints that are best treated and addressed in an outpatient setting. As disclosed, it is pertinent that you set up with a primary care physician in the outpatient setting and/or visit the local health department for continued outpatient services. Please do not take any [id number] medications excessively and comply with all medications as written on the label inserts. If you experience any concerning signs or symptoms that present prior to outpatient follow-up please do not hesitate to come back for repeat evaluation. I wish you the best going forward Problem Qualifiers NIALL MCKEON DO December 15, 2020 10:22
[2020-12-15 11:09] LABS: BASO % 0 % (0-3); EOS % 0 % (0-3); HEMATOCRIT 44.6 % (39.0-53.0); HEMOGLOBIN 15.2 g/dL (13.0-17.5); LYMPH # 1.6 x10^3/uL (1.0-4.8); LYMPH % 23 % (24-48); MEAN CORPUSCULAR HEMOGLOBIN 30 pg (25-35); MEAN CORPUSCULAR HGB CONC 34 g/dL (31-37); MEAN CORPUSCULAR VOLUME 88 fL (79-100); MONO # 0.5 x10^3/uL (0.0-1.1); MONO % 8 % (0-9); NEUT # 4.8 x10^3uL (1.8-7.7); NEUT % 69 % (31-73); PLATELET COUNT 168 x10^3/uL (140-400); RED BLOOD COUNT 5.05 x10^6/uL (4.30-5.70); RED CELL DISTRIBUTION WIDTH 15.8 % (11.5-14.5)
[2020-12-15] MEDS ORDERED: LISINOPRIL 10 MG TABLET PO ONE (11:15)
[2020-12-15 11:18] LABS: CALCIUM 8.9 mg/dL (8.5-10.1); CREATININE 1.1 mg/dL (0.7-1.3); GFR 83.2; POTASSIUM 3.6 mmol/L (3.5-5.1)
[2020-12-15 12:24] VITALS: BP 184/104
--- NOTE | 2020-12-15 12:28 | EKG ---
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
== END 2020-12-15 12:30 | disposition home or self-care (01) ==
LOC: ER 10:16
DX: F41.9 Anxiety disorder, unspecified (principal); I10 Essential (primary) hypertension; E11.9 Type 2 diabetes mellitus without complications; I25.2 Old myocardial infarction; Z91.19 Patient's noncompliance with other medical treatment and regimen
CPT/HCPCS: 36415; 80048; 84484; 85025; 86592; 86703; 93005; 99284-25

== ENCOUNTER 2020-12-22 08:54 | Emergency (ER) | payer SELFPAY ==
[~2020-12-22] VITALS: Ht 177.8 cm; Wt 77.3 kg
[2020-12-22 09:09] VITALS: BP 152/104
--- NOTE | 2020-12-22 09:24 | RAD ---
Study: XR CHEST 1V Indication: Chest pain. Comparison: 12/11/2020 Findings: Unchanged cardiomediastinal silhouette and philippe. No focal airspace infiltrate, pleural effusion or pn eumothorax. Impression: No acute radiographic abnormality of the chest. No change from 12/11/2020. Electronically signed by: STEFANIE ALEXANDER MD (12/22/2020 9:22 AM) [id number]
--- NOTE | 2020-12-22 09:25 | PHYS DOC ---
Past History Past Medical History: Alcoholism, CAD, Diabetes, Hypertension, [place], Other Additional Past Medical Histor: OPIATE ADDICTION Past Surgical History: Tonsillectomy Alcohol Use: None General Adult EDM: Chief Complaint: CHEST PAIN HPI: HPI: 60-year-old male presents via EMS with chest pain, shortness of breath, and anxiety. He was given aspirin and sublingual nitro prior to arrival. The patient states that he just moved here and still has not established with a primary care physician. We have seen him in the emergency room every 4 or 5 days for over a month and the patient still does not have a primary care physician. The patient is supposed to be on Coumadin. He tells me he has not taken it in 6 weeks. He was placed on this due to a "blockage in my heart but they did not do a stent". He also states intermittent muscle spasms "all over". Denies fever or chills. Review of Systems: Review of Systems: Constitutional: Denies fever or chills Eyes: Denies change in visual acuity HENT: Denies nasal congestion or sore throat Respiratory: shortness of breath Cardiovascular: Chest pain GI: Denies abdominal pain, nausea, vomiting, bloody stools or diarrhea : Denies dysuria Musculoskeletal: Denies back pain or joint pain Integument: Denies rash Neurologic: Denies headache, focal weakness or sensory changes Endocrine: Denies polyuria or polydipsia Lymphatic: Denies swollen glands Psychiatric: Denies depression or anxiety Allergies: Allergies: Allergies Coded Allergies Type Severity Reaction Last Updated Verified No Known Drug Allergies 11/20/20 No Physical Exam: PE: Constitutional: Well developed, well nourished, no acute distress, non-toxic appearance. [] HENT: Normocephalic, atraumatic, bilateral external ears normal, oropharynx mois t, no oral exudates, nose normal. [] Eyes: PERRLA, EOMI, conjunctiva normal, no discharge. [] Neck: Normal range of motion, no tenderness, supple, no stridor. [] Cardiovascular: Heart rate 117, regular rhythm, no murmur [] Lungs & Thorax: Bilateral breath sounds clear to auscultation [] Abdomen: Bowel sounds normal, soft, no tenderness, no masses, no pulsatile masses. [] Skin: Warm, dry, no erythema, no rash. [] Back: No tenderness, no CVA tenderness. [] Extremities: No tenderness, no cyanosis, no clubbing, ROM intact, no edema. [] Neurologic: Alert and oriented X 3, normal motor function, normal sensory function, no focal deficits noted. [] Psychologic: Affect normal, judgement normal, mood anxious. [] Current Patient Data: Labs: Laboratory Tests Test 12/22/20 08:57 Glucose (Fingerstick) 169 mg/dL (70-99) H EKG: EKG: Sinus tachycardia, rate 117, normal axis, no ST elevation or depression. [] Radiology/Procedures: Radiology/Procedures: [] Impressions: Study: XR CHEST 1V Indication: Chest pain. Comparison: 12/11/2020 Findings: Unchanged cardiomediastinal silhouette and philippe. No focal airspace infiltrate, pleural effusion or pneumothorax. Impression: No acute radiographic abnormality of the chest. No change from 12/11/2020. Electronically signed by: STEFANIE ALEXANDER MD (12/22/2020 9:22 AM) [id number] DICTATED AND SIGNED BY: STEFANIE ALEXANDER MD DATE: 12/22/20920 CC: JT ALVAREZ DO; PCP,UNKNOWN ~MTH0 0 Heart Score: C/O Chest Pain: Yes HEART Score for Chest Pain: HEART Score for Chest Pain Response (Comments) Value History Slighlty/Non-Suspicious 0 ECG Normal 0 Age >45 - < 65 1 Risk Factors 1 or 2 Risk Factors 1 Troponin < Normal Limit 0 Total 2 Risk Factors: Risk Factors: DM, Current or recent (<one month) smoker, HTN, HLP, family history of CAD, obesity. Risk Scores: Score 0 - 3: 2.5% MACE over next 6 weeks - Discharge Home Score 4 - 6: 20.3% MACE over next 6 weeks - Admit for Clinical Observation Score 7 - 10: 72.7% MACE over next 6 weeks - Early Invasive Strategies Course & Med Decision Making: Course & Med Decision Making Pertinent Labs and Imaging studies reviewed. (See chart for details) The patient's labs are essentially unremarkable. See official labs for details. His chest x-ray is negative for acute findings. EKG is unremarkable except for tachycardia. Troponin is negative. I have ordered a liter of fluids for the patient. I have also given him 5 of Haldol for his anxiety. The patient's INR is 1.1. I have stressed to him that if he really does need to be on Coumadin he needs to take get established with a primary physician and get his prescriptions. He is stable for discharge at this time. [] Susan Disclaimer: Susan Disclaimer: This electronic medical record was generated, in whole or in part, using a voice recognition dictation system. Departure Departure: Referrals: PCP,UNKNOWN (PCP) JT ALVAREZ DO December 22, 2020 09:25
[2020-12-22 09:27] LABS: BASO # 0.1 x10^3/uL (0.0-0.2); BASO % 1 % (0-3); EOS # 0.1 x10^3/uL (0.0-0.7); EOS % 1 % (0-3); HEMATOCRIT 49.7 % (39.0-53.0); HEMOGLOBIN 17.1 g/dL (13.0-17.5); LYMPH # 3.9 x10^3/uL (1.0-4.8); LYMPH % 44 % (24-48); MEAN CORPUSCULAR HEMOGLOBIN 31 pg (25-35); MEAN CORPUSCULAR HGB CONC 34 g/dL (31-37); MEAN CORPUSCULAR VOLUME 89 fL (79-100); MONO # 0.9 x10^3/uL (0.0-1.1); MONO % 10 % (0-9); NEUT # 3.9 x10^3uL (1.8-7.7); NEUT % 44 % (31-73); PLATELET COUNT 224 x10^3/uL (140-400); RED BLOOD COUNT 5.59 x10^6/uL (4.30-5.70); RED CELL DISTRIBUTION WIDTH 15.3 % (11.5-14.5); WHITE BLOOD COUNT 8.8 x10^3/uL (4.0-11.0)
[2020-12-22] MEDS ORDERED: IV NORMAL SALINE 1,000ML 1,000 ML IV ONE ×2 (09:30→10:00)
[2020-12-22] MEDS ORDERED: HALOPERIDOL LACT 5 MG/ML VIAL. IVP ONE (09:30)
[2020-12-22 09:38] LABS: CALCIUM 9.1 mg/dL (8.5-10.1); CREATININE 1.1 mg/dL (0.7-1.3); GFR 83.2; POTASSIUM 3.6 mmol/L (3.5-5.1)
[2020-12-22 09:43] LABS: ALBUMIN/GLOBULIN RATIO 1.1 (1.0-1.7); TOTAL BILIRUBIN 1.1 mg/dL (0.2-1.0); TOTAL PROTEIN 7.8 g/dL (6.4-8.2)
--- NOTE | 2020-12-22 09:50 | EKG ---
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
[2020-12-22 12:02] LABS: BARBITURATES NEG (NEG); BENZODIAZEPINES NEG (NEG); CANNABINOIDS NEG (NEG); COCAINE NEG (NEG); METHADONE NEG (NEG); OPIATES NEG (NEG); PHENCYCLIDINE NEG (NEG)
[2020-12-22 12:06] LABS: AMPHETAMINE/METHAMPHETAMINE NEG (NEG)
[2020-12-22 12:22] LABS: BACTERIA,URINE 0 /HPF (0-FEW); BILIRUBIN,URINE NEG (NEG); CLARITY,URINE CLEAR; COLOR,URINE YELLOW; GLUCOSE,URINE NEG (NEG); NITRITE,URINE NEG (NEG); SQUAMOUS EPITHELIAL CELL,UR FEW /LPF
== END 2020-12-22 13:04 | disposition home or self-care (01) ==
LOC: ER 08:54
DX: R07.89 Other chest pain (principal); F41.9 Anxiety disorder, unspecified; E11.9 Type 2 diabetes mellitus without complications; I10 Essential (primary) hypertension; I25.2 Old myocardial infarction
CPT/HCPCS: 36415; 71045; 80053; 80307; 81001; 82947; 84484; 85025; 85610; 85730; 93005; 96361; 96374; 99285; J1630; J7030

== ENCOUNTER 2021-01-14 10:50 | Inpatient (IN) | payer SELFPAY ==
[2021-01-14] VITALS (16 sets, daily range): BP systolic 149–210; BP diastolic 100–131
[~2021-01-14] VITALS: Ht 177.8 cm; Wt 86.4 kg
[2021-01-14 11:25] LABS: BASO # 0.1 x10^3/uL (0.0-0.2); BASO % 1 % (0-3); EOS % 0 % (0-3); HEMATOCRIT 48.4 % (39.0-53.0); HEMOGLOBIN 16.8 g/dL (13.0-17.5); LYMPH # 1.7 x10^3/uL (1.0-4.8); LYMPH % 22 % (24-48); MEAN CORPUSCULAR HEMOGLOBIN 31 pg (25-35); MEAN CORPUSCULAR HGB CONC 35 g/dL (31-37); MEAN CORPUSCULAR VOLUME 89 fL (79-100); MONO # 0.8 x10^3/uL (0.0-1.1); MONO % 10 % (0-9); NEUT # 5.3 x10^3uL (1.8-7.7); NEUT % 68 % (31-73); PLATELET COUNT 206 x10^3/uL (140-400); RED BLOOD COUNT 5.45 x10^6/uL (4.30-5.70); RED CELL DISTRIBUTION WIDTH 14.4 % (11.5-14.5); WHITE BLOOD COUNT 7.8 x10^3/uL (4.0-11.0)
[2021-01-14] MEDS ORDERED: IOHEXOL 300 MG/ML 75 ML VIAL. IV ONE (11:30)
[2021-01-14 11:37] LABS: CALCIUM 8.6 mg/dL (8.5-10.1); CREATININE 1.2 mg/dL (0.7-1.3); GFR 75.2; POTASSIUM 3.2 mmol/L (3.5-5.1)
[2021-01-14 11:50] LABS: ALBUMIN 3.6 g/dL (3.4-5.0); ALBUMIN/GLOBULIN RATIO 0.9 (1.0-1.7); TOTAL BILIRUBIN 1.1 mg/dL (0.2-1.0); TOTAL PROTEIN 7.4 g/dL (6.4-8.2)
--- NOTE | 2021-01-14 11:51 | PHYS DOC ---
Past History Past Medical History: Diabetes, Hypertension, OK Additional Past Medical Histor: OPIATE ADDICTION Past Surgical History: No Surgical History Alcohol Use: None General Adult EDM: Chief Complaint: SHORTNESS OF BREATH HPI: HPI: 52-year-old male past medical history diabetes, hypertension, tobacco use and CAD (stent placed 2 years ago in [place]-here visiting family) on coumadin, presents to the ED with complaints of shortness of breath, "I just do not feel well, my whole body feels asleep," for the past 3 days. Denies any known history of Covid. No history of IV drug use. States he is on Coumadin because of CAD-unable to place stent at location of blockage. Primary care physician is in [facility], Dr. Porter. Has been noncompliant with his Coumadin for the past 3 months. No history of DVT or PE or valvular repair. Review of Systems: Review of Systems: Constitutional: Denies fever or chills Eyes: Denies change in visual acuity HENT: Denies nasal congestion or sore throat Respiratory: Denies cough or hemoptysis Cardiovascular: Denies chest pain or edema GI: Denies abdominal pain, nausea, vomiting, : Denies dysuria or hematuria Musculoskeletal: Denies back pain or joint pain or leg swelling Integument: Denies rash or diaphoresis Neurologic: Denies headache, focal weakness or sensory changes Endocrine: Denies polyuria or polydipsia Lymphatic: Denies swollen glands Psychiatric: Denies depression or anxiety Current Medications: Current Meds: Current Medications Medications (Trade) Dose Ordered Sig/Shahrzad Start Time Stop Time Status Last Admin Dose Admin Iohexol (Omnipaque 300 Mg/ml) 75 ml 1X ONCE 01/14/21 11:30 01/14/21 11:32 DC 01/14/21 11:46 75 ML Allergies: Allergies: Allergies Coded Allergies Type Severity Reaction Last Updated Verified No Known Drug Allergies 11/20/20 No Physical Exam: PE: Constitutional: no acute distress, non-toxic appearance. HENT: Normocephalic, atraumatic, dry mucous membranes Eyes: EOMI, conjunctiva normal, no discharge. Neck: Normal range of motion, supple, Cardiovascular: S1/2 present, irregular rhythm/tachycardic Lungs & Thorax: Speaking in full sentences, bilateral equal chest rise, no tachypnea or increased work of breathing Abdomen: soft, no tenderness, Skin: Warm, dry, no erythema, no rash. [] Back: No tenderness, no CVA tenderness. [] Extremities: No tenderness, no cyanosis, Neurologic: Alert and oriented X 3, normal motor function, normal sensory function, no focal deficits noted. [] Psychologic: Affect normal, judgement normal, mood normal. [] Current Patient Data: Labs: Laboratory Tests Test 01/14/21 11:12 White Blood Count 7.8 x10^3/uL (4.0-11.0) Red Blood Count 5.45 x10^6/uL (4.30-5.70) Hemoglobin 16.8 g/dL (13.0-17.5) Hematocrit 48.4 % (39.0-53.0) Mean Corpuscular Volume 89 fL (79-100) Mean Corpuscular Hemoglobin 31 pg (25-35) Mean Corpuscular Hemoglobin Concent 35 g/dL (31-37) Red Cell Distribution Width 14.4 % (11.5-14.5) Platelet Count 206 x10^3/uL (140-400) Neutrophils (%) (Auto) 68 % (31-73) Lymphocytes (%) (Auto) 22 % (24-48) L Monocytes (%) (Auto) 10 % (0-9) H Eosinophils (%) (Auto) 0 % (0-3) Basophils (%) (Auto) 1 % (0-3) Neutrophils # (Auto) 5.3 x10^3uL (1.8-7.7) Lymphocytes # (Auto) 1.7 x10^3/uL (1.0-4.8) Monocytes # (Auto) 0.8 x10^3/uL (0.0-1.1) Eosinophils # (Auto) 0.0 x10^3/uL (0.0-0.7) Basophils # (Auto) 0.1 x10^3/uL (0.0-0.2) Sodium Level 131 mmol/L (136-145) L Potassium Level 3.2 mmol/L (3.5-5.1) L Chloride Level 89 mmol/L (98-107) L Carbon Dioxide Level 19 mmol/L (21-32) L Anion Gap 23 (6-14) H Blood Urea Nitrogen 12 mg/dL (8-26) Creatinine 1.2 mg/dL (0.7-1.3) Estimated GFR (Cockcroft-Gault) 75.2 BUN/Creatinine Ratio 10 (6-20) Glucose Level 260 mg/dL (70-99) H Calcium Level 8.6 mg/dL (8.5-10.1) Total Bilirubin Pending Aspartate Amino Transferase (AST) Pending Alanine Aminotransferase (ALT) Pending Alkaline Phosphatase Pending Creatine Kinase Pending Troponin I Quantitative < 0.017 ng/mL (0-0.055) NO-Sic-S-Type Natriuretic Peptide Pending Total Protein Pending Albumin Pending Albumin/Globulin Ratio Pending EKG: EKG: Sinus tachycardia 121 bpm w/pacs, no axis deviation, QTC 477, no obvious ST deviations or ST depressions or T wave inversions 1520 sinus tachycardia 122 bpm w/pacs, no axis deviation, QTC 497, no obvious extubations ST depressions, T wave inversion 1 aVL Radiology/Procedures: Radiology/Procedures: IMAGING REPORT Signed PATIENT: JARED ESTES ACCOUNT: [id number] : 1960 LOCATION: ER AGE: 60 SEX: M EXAM STATUS: REG ER ORD. PHYSICIAN: KIYA HUYNH DO REASON: soa PROCEDURE: PORTABLE CHEST 1V EXAM: CHEST 1 VIEW History: Shortness of breath COMPARISON: 12/22/2020 TECHNIQUE: Single portable radiograph of the chest FINDINGS: The cardiac silhouette is unremarkable. The lungs are clear bilaterally. The costophrenic sulci are clear and well demarcated. IMPRESSION: No radiographic evidence of an acute cardiopulmonary process. Electronically signed by: Lukas Denton MD (01/14/2021 11:52 AM) [id number] DICTATED AND SIGNED BY: LUKAS DENTON MD DATE: 01/14/21 1151 CC: PCP,RICHARD; KIYA HUYNH DO ~MTH0 0 IMAGING REPORT Signed PATIENT: JARED ESTES ACCOUNT: [id number] : 1960 LOCATION: ER AGE: 60 SEX: M EXAM STATUS: REG ER ORD. PHYSICIAN: KIYA HUYNH DO REASON: soa, r/o pe, not taking coumadin as directed, hx pe PROCEDURE: CT ANGIOGRAPHY CHEST Study: CT CHEST WITH CONTRAST - PULMONARY ANGIOGRAM History: Shortness of breath, rule out PE, not taking Coumadin as directed Comparison: Chest radiograph 12/22/2020 Technique: Helical CT of the chest performed after the administration of intravenous contrast and timed for angiographic evaluation of the pulmonary arteries per PE protocol. Coronal and sagittal 3D MIP reformations were obtained. One or more of the following individualized dose reduction techniques were utilized for this examination: 1. Automated exposure control 2. Adjustment of the mA and/or kV according to patient size 3. Use of iterative reconstruction technique. Findings: Pulmonary Arteries: Contrast bolus is adequate. There is no acute pulmonary embolism. Heart/Systemic Vasculature: The heart is normal in size. No pericardial effusion. Thoracic aorta is normal in caliber. Mediastinum: No mediastinal or hilar lymphadenopathy. Lungs: There is a 3 mm subpleural pulmonary nodule in the posterior left apex. The lungs are otherwise clear. Central airways are clear. No pleural effusion. Neck/Axilla/Body Wall: No axillary lymphadenopathy. Thyroid gland is normal. Upper Abdomen: Unremarkable. Bones: No acute osseous abnormality. IMPRESSION: 1. No acute pulmonary embolism. 2. 3 mm subpleural pulmonary nodule in the posterior left apex. In a low-risk patient, no follow-up is indicated. In a high risk patient, optional twelve- month follow-up CT could be obtained to ensure stability. Electronically signed by: Divya Bowie MD (01/14/2021 12:07 PM) [id number] DICTATED AND SIGNED BY: DIVYA BOWIE MD DATE: 01/14/21 1204 CC: PCP,NO; KIYA HUYNH DO ~MTH0 0 Heart Score: C/O Chest Pain: No Risk Factors: Risk Factors: DM, Current or recent (<one month) smoker, HTN, HLP, family history of CAD, obesity. Risk Scores: Score 0 - 3: 2.5% MACE over next 6 weeks - Discharge Home Score 4 - 6: 20.3% MACE over next 6 weeks - Admit for Clinical Observation Score 7 - 10: 72.7% MACE over next 6 weeks - Early Invasive Strategies Course & Med Decision Making: Course & Med Decision Making Pertinent Labs and Imaging studies reviewed. (See chart for details) On reevaluation patient reported multiple episodes of vomiting and diarrhea in the past 24 hours (pt initially denied this). Suspect dehydration in the setti ng of ketonuria and sinus tachycardia w/pacs. I reviewed EKG with cardiology, Dr. Ogden. Will admit for further medical management. Patient stable at time of admission and agrees with this plan. I have spoken with the patient and/or caregivers. I have explained the patient's condition, diagnosis and treatment plan based on the information available to me at this time. I have answered the patient's and/or caregivers questions and answered any concerns. The patient and/or caregivers have as good an understanding of the patient's diagnosis, condition and treatment plan as can be expected at this point. The patient has been stabilized within the capability of the emergency department. The patient will be transported for further care and management or will be moved to an observation or inpatient service. I have communicated with the staff or medical practitioner taking over this patient's care. Susan Disclaimer: Susan Disclaimer: This electronic medical record was generated, in whole or in part, using a voice recognition dictation system. Departure Departure: Impression: Primary Impression: Nausea, vomiting, and diarrhea Additional Impressions: Dehydration Uncontrolled diabetes mellitus Hyponatremia Sinus tachycardia Disposition: ADMITTED INPATIENT Admitting Physician: Jacqueline Olivares Condition: STABLE Referrals: PCP,RICHARD (PCP) KIYA HUYNH DO Jan 14, 2021 11:51
--- NOTE | 2021-01-14 11:55 | RAD ---
EXAM: CHEST 1 VIEW History: Shortness of breath COMPARISON: 12/22/2020 TECHNIQUE: Single portable radiograph of the chest FINDINGS: The cardiac silhouette is unremarkable. The lungs are clear bilaterally. The costophrenic sulci are clear and well demarcated. IMPRESSION: No radiographic evidence of an acute cardiopulmonary process. Electronically signed by: Lukas Denton MD (01/14/2021 11:52 AM) [id number]
--- NOTE | 2021-01-14 12:10 | RAD ---
Study: CT CHEST WITH CONTRAST - PULMONARY ANGIOGRAM History: Shortness of breath, rule out PE, not taking Coumadin as directed Comparison: Chest radiograph 12/22/2020 Technique: Helical CT of the chest performed after the administration of intravenous contrast and ti med for angiographic evaluation of the pulmonary arteries per PE protocol. Coronal and sagittal 3D [place] P reformations were obtained. One or more of the following individualized dose reduction techniques were utilized for this examinat ion: 1. Automated exposure control 2. Adjustment of the mA and/or kV according to patient size 3. Use of iterative reconstruction technique. Findings: Pulmonary Arteries: Contrast bolus is adequate. There is no acute pulmonary embolism. Heart/Systemic Vasculature: The heart is normal in size. No pericardial effusion. Thoracic aorta is n ormal in caliber. Mediastinum: No mediastinal or hilar lymphadenopathy. Lungs: There is a 3 mm subpleural pulmonary nodule in the posterior left apex. The lungs are otherwis e clear. Central airways are clear. No pleural effusion. Neck/Axilla/Body Wall: No axillary lymphadenopathy. Thyroid gland is normal. Upper Abdomen: Unremarkable. Bones: No acute osseous abnormality. IMPRESSION: 1. No acute pulmonary embolism. 2. 3 mm subpleural pulmonary nodule in the posterior left apex. In a low-risk patient, no follow-up is indicated. In a high risk patient, optional twelve-month follow-up CT could be obtained to ensure stability. Electronically signed by: Divya Bowie MD (01/14/2021 12:07 PM) [id number]
[2021-01-14 12:33] LABS: ETHANOL < 10 mg/dL (0-10); SALIC 3.1 mg/dL (2.8-20.0)
[2021-01-14 13:09] LABS: BARBITURATES NEG (NEG); BENZODIAZEPINES NEG (NEG); CANNABINOIDS NEG (NEG); COCAINE NEG (NEG); METHADONE NEG (NEG); OPIATES NEG (NEG); PHENCYCLIDINE NEG (NEG)
[2021-01-14 13:14] LABS: AMPHETAMINE/METHAMPHETAMINE NEG (NEG)
[2021-01-14] MEDS ORDERED: IV NORMAL SALINE 1,000ML 1,000 ML IV ONE (13:15)
[2021-01-14 13:20] LABS: CLARITY,URINE CLEAR; COLOR,URINE YELLOW
[2021-01-14 13:21] LABS: BILIRUBIN,URINE NEG (NEG); GLUCOSE,URINE >=1000 mg/dL (NEG); NITRITE,URINE NEG (NEG); UROBILINOGEN,URINE 0.2 mg/dL (0.2 mg/dL)
[2021-01-14 13:23] LABS: BACTERIA,URINE 0 /HPF (0-FEW); SQUAMOUS EPITHELIAL CELL,UR OCC /LPF; WBC,URINE 0 /HPF (0-4)
[2021-01-14] MEDS ORDERED: DEXTROSE 50% 25 GM / 50ML DISP.SYRIN. IV PRN ×2 (14:00→17:15)
[2021-01-14] MEDS ORDERED: MVI, ADULT NO.4 WITH VIT K 10 ML, FOLIC ACID INJ 1 MG, THIAMINE INJ 100 MG in IV RINGER... IV ONE (14:00)
[2021-01-14] MEDS ORDERED: INSULIN LISPRO 300 UNITS/3 ML VIAL. SQ ONE ×2 (14:00→15:00)
[2021-01-14] MEDS ORDERED: KETOROLAC 15 MG/ML VIAL. IVP ONE (14:15)
[2021-01-14] MEDS ORDERED: INSULIN LISPRO 300 UNITS/3 ML VIAL. SQ SCH (17:00)
[2021-01-14] MEDS ORDERED: POTASSIUM CHLORIDE 20 MEQ TABLET.ER. PO ONE (17:15)
[2021-01-14] MEDS ORDERED: DIGOXIN IV 500 MCG/2 ML AMPUL. IV ONE ×2 (17:15→20:15)
[2021-01-14] MEDS: IV NORMAL SALINE 1,000ML 1,000 ML IV SCH ×2 (17:56→23:07)
--- NOTE | 2021-01-14 18:39 | RAD ---
US BILATERAL LOWEREXTREMITY VENOUS DOPPLER History: Reason: HX DVT, AFIB RVR, BILATERAL LEG PAIN/NUMBESS / Spl. Instructions: / History: Comparison: None. Discussion: Multiple longitudinal and transverse high resolution real-time images of the venous system of [facility] lower extremity were obtained with color and Doppler sampling. The common femoral, superficial fem oral, popliteal and proximal calf veins are all patent and demonstrate normal flow and compressibilit y. Normal respiratory phasicity and augmentation is present. Impression: 1. No evidence of deep vein thrombosis. Electronically signed by: Yovany Olson DO (01/14/2021 6:37 PM) [facility]
--- NOTE | 2021-01-14 18:59 | EKG ---
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
[2021-01-14] MEDS ORDERED: METOPROLOL TARTRATE 5 MG/5 ML VIAL. IV ONE (19:00)
[2021-01-14] MEDS ORDERED: MAGNESIUM SULFATE 2GM 50 ML IV ONE (19:00)
--- NOTE | 2021-01-14 19:02 | EKG ---
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
[2021-01-14] MEDS ORDERED: NICOTINE 21MG PATCH. TD PRN (19:45)
[2021-01-14] MEDS ORDERED: ONDANSETRON PF 4 MG/2 ML VIAL. IVP PRN (19:45)
[2021-01-14] MEDS ORDERED: IV NORMAL SALINE 1,000ML 2,190 ML IV ONE (20:00)
[2021-01-14] MEDS: ENOXAPARIN ** NOTE DOSE ** SYRINGE SQ SCH (20:41)
[2021-01-14] MEDS: INSULIN GLARGINE SYRINGE. SQ SCH (20:43)
[2021-01-14] MEDS: METOPROLOL TARTRATE 5 MG/5 ML VIAL. IV SCH (22:50)
--- NOTE | 2021-01-14 22:55 | EKG ---
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
[2021-01-14] MEDS ORDERED: amLODIPine BESYLATE 5 MG TABLET PO ONE (23:00)
[2021-01-14] MEDS: clonazePAM 2 MG TABLET PO PRN (23:06)
[2021-01-14] MEDS: ACETAMINOPHEN 325 MG TABLET PO PRN (23:06)
[2021-01-14 23:24] LABS: CALCIUM 7.8 mg/dL (8.5-10.1); CREATININE 0.9 mg/dL (0.7-1.3); GFR 104.9; POTASSIUM 3.7 mmol/L (3.5-5.1)
[2021-01-15] VITALS (29 sets, daily range): BP systolic 130–188; BP diastolic 73–119
[2021-01-15] MEDS: METOPROLOL TARTRATE 5 MG/5 ML VIAL. IV SCH ×6 (02:31→23:00)
[2021-01-15] MEDS: IV NORMAL SALINE 1,000ML 1,000 ML IV SCH ×3 (06:23→19:55)
[2021-01-15] MEDS: INSULIN LISPRO 300 UNITS/3 ML VIAL. SQ SCH ×3 (08:28→17:13)
--- NOTE | 2021-01-15 08:30 | PDOC2 ---
CARDIAC CONSULT DATE OF CONSULT DOS: DATE: 01/15/21 TIME: 08:24 REASON FOR CONSULT Reason for Consult AFIB with RVR REFERRING PHYSICIAN Referring Physician Dr. Olivares SOURCE Source: Chart review, Patient HPI History of Present Illness This is a 60 yo male who presented secondary to shortness of breath and palpitations. Patient moved here form [place] 3 months ago. Has not established care with primary care provider and has been out of all of his medications. Has a history of "irregular heartbeat". Was previously on warfarin for stroke prophylaxis. Additional h/o chronic pain. Was previously on high-dose oxycontin and also took suboxone at one time. Ran out of all meds when he moved here. Ended up having significant withdrawal symptoms Reports difficulty ambulation and is very unsteady on his feet. Even has difficulty shower due to loss of balance. Has also had some falls. PAST MEDICAL HISTORY Cardiovascular: AFIB, CAD, HTN, hyperipidemia Heme/Onc: Other (DVT) Psych: Anxiety, Depression Musculoskeletal: Osteoarthritis Endocrine: Diabetes PAST SURGICAL HISTORY Past Surgical History: Tonsillectomy FAMILY HISTORY Family History: Cancer, Diabetes, Hypertension SOCIAL HISTORY Social History Smoke: <1 pack per day ALCOHOL: other (h/o heavy use) Drugs: None Lives: with Family CURRENT MEDICATIONS Current Medications Current Medications Iohexol (Omnipaque 300 Mg/ml) 75 ml 1X ONCE IV Last administered on 01/14/21at 11:46; Start 01/14/21 at 11:30; Stop 01/14/21 at 11:32; Status DC Sodium Chloride 1,000 ml @ 1,000 mls/hr 1X ONCE IV Last administered on 01/14/21at 13:35; Start 01/14/21 at 13:15; Stop 01/14/21 at 14:14; Status DC Multivitamins/ Minerals 10 ml/ Folic Acid 1 mg/ Thiamine HCl 100 mg/Lactated Ringer's 1,011.3 ml @ 1,011.3 mls/hr 1X ONCE IV Last administered on 01/14/21at 17:10; Start 01/14/21 at 14:00; Stop 01/14/21 at 14:59; Status DC Insulin Human Lispro (HumaLOG) TIDWMEALS SQ ; Start 01/14/21 at 17:00; Stop 01/14/21 at 17:42; Status DC Dextrose (Dextrose 50%-Water Syringe) 12.5 gm PRN Q15MIN PRN IV SEE COMMENTS; Start 01/14/21 at 14:00; Stop 01/14/21 at 17:42; Status DC Insulin Human Lispro (HumaLOG) 26 units 1X ONCE SQ ; Start 01/14/21 at 14:00; Stop 01/14/21 at 14:01; Status DC Ketorolac Tromethamine (Toradol 15mg Vial) 15 mg 1X ONCE IVP Last administered on 01/14/21at 14:43; Start 01/14/21 at 14:15; Stop 01/14/21 at 14:16; Status DC Insulin Human Lispro (HumaLOG) 10 units 1X ONCE SQ Last administered on 01/14/21at 14:53; Start 01/14/21 at 15:00; Stop 01/14/21 at 15:01; Status DC Enoxaparin Sodium (Lovenox 100mg Syringe) 90 mg Q12HR SQ Last administered on 01/14/21at 20:41; Start 01/14/21 at 21:00 Sodium Chloride 1,000 ml @ 150 mls/hr Q6H40M IV Last administered on 01/15/21at 06:23; Start 01/14/21 at 17:15 Digoxin (Lanoxin) 500 mcg 1X ONCE IV Last administered on 01/14/21at 17:54; Start 01/14/21 at 17:15; Stop 01/14/21 at 17:43; Status DC Potassium Chloride (Klor-Con) 40 meq 1X ONCE PO Last administered on 01/14/21at 17:55; Start 01/14/21 at 17:15; Stop 01/14/21 at 17:43; Status DC Insulin Glargine (Lantus Syringe) 10 unit QHS SQ Last administered on 01/14/21at 20:43; Start 01/14/21 at 21:00 Insulin Human Lispro (HumaLOG) 0-9 UNITS TIDWMEALS SQ ; Start 01/15/21 at 08:00 Dextrose (Dextrose 50%-Water Syringe) 12.5 gm PRN Q15MIN PRN IV SEE COMMENTS; Start 01/14/21 at 17:15 Metoprolol Tartrate (Lopressor Vial) 5 mg 1X ONCE IV Last administered on 12/26 08/16at 19:37; Start 01/14/21 at 19:00; Stop 01/14/21 at 19:18; Status DC Metoprolol Tartrate (Lopressor) 50 mg BID PO ; Start 01/15/21 at 09:00 Magnesium Sulfate 50 ml @ 25 mls/hr 1X ONCE IV Last administered on 01/14/21at 19:40; Start 01/14/21 at 19:00; Stop 01/14/21 at 20:59; Status DC Sodium Chloride 2,190 ml @ 2,190 mls/hr Q1H ONCE IV Last administered on 01/14/21at 20:19; Start 01/14/21 at 20:00; Stop 01/14/21 at 20:59; Status DC Nicotine (Nicoderm Cq 21mg Patch) 1 patch PRN DAILY PRN TD SMOKING CESSATION Last administered on 01/14/21at 20:43; Start 01/14/21 at 19:45 Ondansetron HCl (Zofran) 4 mg PRN Q6HRS PRN IVP NAUSEA/VOMITING; Start 01/14/21 at 19:45 Digoxin (Lanoxin) 250 mcg 1X ONCE IV Last administered on 01/14/21at 20:43; Start 01/14/21 at 20:15; Stop 01/14/21 at 20:29; Status DC Metoprolol Tartrate (Lopressor Vial) 5 mg Q4H IV Last administered on 01/15/21at 06:23; Start 01/14/21 at 23:00 Amlodipine Besylate (Norvasc) 5 mg 1X ONCE PO Last administered on 01/14/21at 22:50; Start 01/14/21 at 23:00; Stop 01/14/21 at 23:01; Status DC Acetaminophen (Tylenol) 650 mg PRN Q6HRS PRN PO MILD PAIN / TEMP > 100.3'F Last administered on 01/14/21at 23:06; Start 01/14/21 at 23:00 Clonazepam (KlonoPIN) 2 mg PRN QHS PRN PO ANXIETY / AGITATION Last administered on 01/14/21at 23:06; Start 01/14/21 at 23:00 Active Scripts Active Vistaril (Hydroxyzine Pamoate) 25 Mg Capsule 1 Cap PO TID 7 Days Atorvastatin Calcium 40 Mg Tablet 1 Tab PO DAILY Lisinopril 20 Mg Tablet 1 Tab PO DAILY Aspirin 81 Mg Tab.chew 81 Mg PO DAILY Reported NICODERM CQ 14mg (Nicotine) 1 Each Patch.td24 1 Patch TD QHS Metformin Hcl Er (Metformin Hcl) 500 Mg Tab.er.24h 2 Tab PO BID Glimepiride 2 Mg Tablet 1 Tab PO BID Lisinopril-Hctz 20-12.5 Mg Tab (Lisinopril/Hydrochlorothiazide) 1 Each Tablet 1 Tab PO BID ALLERGIES Allergies: Coded Allergies: No Known Drug Allergies (Unverified , 11/20/20) ROS Review of Systems 14 point ROS conducted with pertinent positives noted above in hPI PHYSICAL EXAM General: Alert, Oriented X3, Cooperative, No acute distress HEENT: Atraumatic Lungs: Clear to auscultation Heart: Regular rate (SR/ST) Abdomen: Soft, No tenderness Extremities: No edema, Normal pulses Neuro: Normal speech, Sensation intact Psych/Mental Status: Mental status NL, Mood NL MUSCULOSKELETAL: Osteoarthritic changes both hands VITALS Vital Signs Vital Signs Date Time Temp Pulse Resp B/P (MAP) Pulse Ox O2 Delivery O2 Flow Rate FiO2 01/15/21 06:40 86 22 164/101 (122) 100 Nasal Cannula 1.0 01/15/21 05:10 98.7 LABS LABS Laboratory Tests Test 01/14/21 11:12 01/14/21 11:57 01/14/21 12:47 01/14/21 14:00 White Blood Count 7.8 x10^3/uL (4.0-11.0) Red Blood Count 5.45 x10^6/uL (4.30-5.70) Hemoglobin 16.8 g/dL (13.0-17.5) Hematocrit 48.4 % (39.0-53.0) Mean Corpuscular Volume 89 fL (79-100) Mean Corpuscular Hemoglobin 31 pg (25-35) Mean Corpuscular Hemoglobin Concent 35 g/dL (31-37) Red Cell Distribution Width 14.4 % (11.5-14.5) Platelet Count 206 x10^3/uL (140-400) Neutrophils (%) (Auto) 68 % (31-73) Lymphocytes (%) (Auto) 22 % (24-48) Monocytes (%) (Auto) 10 % (0-9) Eosinophils (%) (Auto) 0 % (0-3) Basophils (%) (Auto) 1 % (0-3) Neutrophils # (Auto) 5.3 x10^3uL (1.8-7.7) Lymphocytes # (Auto) 1.7 x10^3/uL (1.0-4.8) Monocytes # (Auto) 0.8 x10^3/uL (0.0-1.1) Eosinophils # (Auto) 0.0 x10^3/uL (0.0-0.7) Basophils # (Auto) 0.1 x10^3/uL (0.0-0.2) Sodium Level 131 mmol/L (136-145) Potassium Level 3.2 mmol/L (3.5-5.1) Chloride Level 89 mmol/L (98-107) Carbon Dioxide Level 19 mmol/L (21-32) Anion Gap 23 (6-14) Blood Urea Nitrogen 12 mg/dL (8-26) Creatinine 1.2 mg/dL (0.7-1.3) Estimated GFR (Cockcroft-Gault) 75.2 BUN/Creatinine Ratio 10 (6-20) Glucose Level 260 mg/dL (70-99) Calcium Level 8.6 mg/dL (8.5-10.1) Total Bilirubin 1.1 mg/dL (0.2-1.0) Aspartate Amino Transf (AST/SGOT) 64 U/L (15-37) Alanine Aminotransferase (ALT/SGPT) 82 U/L (16-63) Alkaline Phosphatase 103 U/L (46-116) Creatine Kinase 192 U/L (39-308) Troponin I Quantitative < 0.017 ng/mL (0-0.055) HB-Tnb-P-Type Natriuretic Peptide 162 pg/mL (0-124) Total Protein 7.4 g/dL (6.4-8.2) Albumin 3.6 g/dL (3.4-5.0) Albumin/Globulin Ratio 0.9 (1.0-1.7) Salicylates Level 3.1 mg/dL (2.8-20.0) Salicylate Last Dose Date Unknown Salicylate Last Dose Time Unknown Ethyl Alcohol Level < 10 mg/dL (0-10) Prothrombin Time 12.1 SEC (9.4-11.4) Prothromb Time International Ratio 1.2 (0.9-1.1) Activated Partial Thromboplast Time 27 SEC (23-33) Magnesium Level 1.5 mg/dL (1.8-2.4) Acetone Level Neg (NEG) Urine Collection Type Unknown Urine Color Yellow Urine Clarity Clear Urine pH 5.0 Urine Specific [place] 1.025 Urine Protein 100 mg/dl (NEG-TRACE) Urine Glucose (UA) >=1000 mg/dL (NEG) Urine Ketones (Stick) 40 mg/dL (NEG) Urine Blood Large (NEG) Urine Nitrite Neg (NEG) Urine Bilirubin Neg (NEG) Urine Urobilinogen Dipstick 0.2 mg/dL (0.2 mg/dL) Urine Leukocyte Esterase Neg (NEG) Urine RBC 6-10 /HPF (0-2) Urine WBC 0 /HPF (0-4) Urine Squamous Epithelial Cells Occ /LPF Urine Bacteria 0 /HPF (0-FEW) Urine Opiates Screen Neg (NEG) Urine Methadone Screen Neg (NEG) Urine Barbiturates Neg (NEG) Urine Phencyclidine Screen Neg (NEG) Urine Amphetamine/Methamphetamine Neg (NEG) Urine Benzodiazepines Screen Neg (NEG) Urine Cocaine Screen Neg (NEG) Urine Cannabinoids Screen Neg (NEG) Urine Ethyl Alcohol Neg (NEG) Bedside Venous pH 7.50 (7.32-7.42) Bedside Venous pCO2 28 mmHg (41-51) Bedside Venous pO2 41 mmHg (20-40) Venous Blood HCO3 21 mmol/L (24-28) POC Venous O2 Saturation (W[place]ley) 83 % Bedside FiO2 21 Test 01/14/21 14:49 01/14/21 16:22 01/14/21 17:54 01/14/21 18:00 Glucose (Fingerstick) 232 mg/dL (70-99) 209 mg/dL (70-99) Troponin I Quantitative < 0.017 ng/mL (0-0.055) Lactic Acid Level 4.9 mmol/L (0.4-2.0) Test 01/14/21 20:33 01/14/21 21:35 01/14/21 22:40 01/15/21 08:08 Glucose (Fingerstick) 172 mg/dL (70-99) 192 mg/dL (70-99) Lactic Acid Level 1.8 mmol/L (0.4-2.0) Sodium Level 131 mmol/L (136-145) Potassium Level 3.7 mmol/L (3.5-5.1) Chloride Level 99 mmol/L (98-107) Carbon Dioxide Level 24 mmol/L (21-32) Anion Gap 8 (6-14) Blood Urea Nitrogen 10 mg/dL (8-26) Creatinine 0.9 mg/dL (0.7-1.3) Estimated GFR (Cockcroft-Gault) 104.9 Glucose Level 146 mg/dL (70-99) Calcium Level 7.8 mg/dL (8.5-10.1) Troponin I Quantitative 0.024 ng/mL (0-0.055) ASSESSMENT/PLAN Assessment/Plan 1. Arrhythmia; reports h/o "irregular heartbeat". Mostly ST since arrival. Tele noted with ST/SA and periods of atrial tachycardia noted. No clear AFIB. . 2. CAD; details unknown. 3. Accelerated hypertension; remains elevated 4. Hyperlipidemia; statin 5. Diabetes, II 6. Hypomagnesemia; replaced 7. Lactic acidosis 8. Transaminitis 9. Tobaccoism; discussed/encouraged cessation 10. Noncompliance Recommendations Metoprolol added for rate control Lisinopril for BP control Hydralazine IV PRN Anticoagulated with Lovenox as inpatient Add ASA therapy Secondary prevention PT/OT Supportive care FINA PRINCE APRN Jan 15, 2021 08:30
[2021-01-15 08:39] LABS: BASO % 0 % (0-3); EOS % 0 % (0-3); HEMATOCRIT 45.9 % (39.0-53.0); HEMOGLOBIN 15.6 g/dL (13.0-17.5); LYMPH # 1.5 x10^3/uL (1.0-4.8); LYMPH % 30 % (24-48); MEAN CORPUSCULAR HEMOGLOBIN 31 pg (25-35); MEAN CORPUSCULAR HGB CONC 34 g/dL (31-37); MEAN CORPUSCULAR VOLUME 91 fL (79-100); MONO # 0.6 x10^3/uL (0.0-1.1); MONO % 13 % (0-9); NEUT # 2.7 x10^3uL (1.8-7.7); NEUT % 56 % (31-73); PLATELET COUNT 149 x10^3/uL (140-400); RED BLOOD COUNT 5.06 x10^6/uL (4.30-5.70); RED CELL DISTRIBUTION WIDTH 14.5 % (11.5-14.5); WHITE BLOOD COUNT 4.9 x10^3/uL (4.0-11.0)
[2021-01-15] MEDS: METOPROLOL TART IMMED RELEASE 50 MG TABLET PO SCH ×2 (08:45→20:54)
[2021-01-15] MEDS ORDERED: IBUPROFEN 600 MG TABLET. PO PRN (08:45)
[2021-01-15] MEDS: ENOXAPARIN ** NOTE DOSE ** SYRINGE SQ SCH ×2 (11:56→20:54)
[2021-01-15] MEDS ORDERED: metFORMIN XR 500 MG TAB.ER.24H PO SCH (12:15)
[2021-01-15] MEDS ORDERED: LISINOPRIL 20 MG TABLET PO SCH (12:15)
--- NOTE | 2021-01-15 12:19 | HP ---
ADMIT DATE: 01/15/2021 HISTORY OF PRESENT ILLNESS: The patient is a 60-year-old -[place] male patient, who came to the emergency room with complaints of shortness of breath, stating that he just does not feel well and ___ feels asleep for the past 3 days. Denies any known history of COVID. No history of IV drug use. States he is on Coumadin because of his coronary artery disease, a stent cannot be placed due to the location of blockage. His primary care physician is in [place], [place], Dr. Porter. Apparently, he has been noncompliant with his Coumadin for the past 3 months. He has no history of DVT or PE and no valvular disease or repair. He was extensively investigated in the emergency room, was found to be in sinus tachycardia with a heart rate of 121 beats per minute with premature atrial contractions. No axis deviation. Corrected QT interval of 477. No obvious ST depression or elevation. He has a chest x-ray showed the cardiac silhouette is unremarkable. The lungs are clear bilaterally. The costophrenic sulci are clear and well demarcated. He underwent CT scan of the chest with a PE protocol, which showed that the patient has no acute pulmonary embolism, has 3 mm subpleural pulmonary nodule in the posterior left apex. In a low risk patient, no followup is indicated. In a high risk patient, optional [address] could be obtained to ensure stability. He has had lab work done, which basically showed that his blood sugar was slightly high at 260. He has hyponatremia, hypokalemia, hypochloremia, has metabolic acidosis and high anion gap acidosis. His BUN was 12, creatinine 1.2. He has elevated AST, ALT and his first set of cardiac enzyme was negative. The patient was admitted with dehydration and mild lactic acidosis, sinus tachycardia, as well as hyponatremia. He was started on IV fluid in the form of normal saline and his potassium was low as well as magnesium, for which he received 2 grams of IV magnesium and was admitted for further evaluation and treatment. PAST MEDICAL HISTORY: Significant for hypertension. According to him, he has also had myocardial infarction x3, has a history of cardiac arrest. He is known to have hepatitis C and has diabetes for the last 7-8 years. PAST SURGICAL HISTORY: Significant for tonsillectomy. ALLERGIES: He has no known drug allergies. MEDICATIONS: He is currently on the following medication: He is on atorvastatin calcium 40 mg once a day, lisinopril 20 mg once a day, lisinopril/hydrochlorothiazide 20/12.5, aspirin 81 mg once a day, hydroxyzine pamoate 25 mg 3 times a day, metformin 1000 mg twice a day and glimepiride 2 mg twice a day. FAMILY HISTORY: He had one brother, who at age of 51 because of HIV and complication of diabetes and peripheral vascular disease. He has two other brothers, younger and still alive. One of them has congestive heart failure. Two sisters are healthy. His father at age of 42 because of complication of diabetes. Mother of cancer and COPD at the age of 72. SOCIAL HISTORY: He is . Quit smoking only yesterday. He does not drink alcohol or use recreational drugs. He is currently unemployed. PHYSICAL EXAMINATION: GENERAL: On arrival to the emergency room, he looked well and was clearly in no apparent respiratory distress. There was no pallor, jaundice, cyanosis, no lymphadenopathy, no thyromegaly, no jugular venous distention, no lower limb edema. VITAL SIGNS: His heart rate on arrival was 135, blood pressure 166/102, temperature was 98, respiratory rate was 20 and oxygen saturation was 98%. HEENT: Examination of the head, eyes, ears, nose, and throat: Normocephalic, atraumatic. NECK: Supple. HEART: Showed normal first and second heart sounds, no gallop or murmur. CHEST: Clear to auscultation, no crepitation or rhonchi. ABDOMEN: Distended, soft, nontender. NEUROLOGIC: He was awake, alert, responding appropriately. All cranial nerves intact. He moves extremities without difficulty. LABORATORY DATA: On admission showed white cell count of 7900, hemoglobin 16.8, hematocrit 38, MCV 89 and platelet count 206,000 with a manual differential shows 68% polymorphs, 22% lymphocytes and 10% monocytes. His chemistry showed a serum sodium 131, potassium 3.2, chloride 89, bicarbonate 19, anion gap of 23, BUN 12, creatinine 1.2. Estimated GFR was 75 mL per minute. His glucose was 160, calcium was 8.6. His total bilirubin, AST, ALT are elevated. Alkaline phosphatase is normal. CK was 192. First set of cardiac enzymes showed troponin to be less than 0.017. His beta natriuretic peptide was 162. Total protein was 7.4, albumin was 3.6. His prothrombin time/INR and APTT were normal. Urinalysis was essentially unremarkable and toxic screen was negative. ASSESSMENT AND PLAN: In summary, the patient was admitted with probably dehydration, mild diabetic ketoacidosis, lactic acidosis, hyponatremia, hypokalemia, hypomagnesemia. The patient was treated with IV fluid and insulin sliding scale, together with Lovenox for deep venous thrombosis prophylaxis and also the stroke prevention. We did consult the Clinic Manager to assist with his management. CARMEN DR: Edward TID: [id number]
[2021-01-15 12:42] LABS: POTASSIUM ISTAT 4.2 mmol/L (3.5-5.0)
[2021-01-15] MEDS: hydroCHLOROthiazide 12.5 MG CAPSULE PO SCH ×2 (12:42→20:56)
[2021-01-15] MEDS: GLIMEPIRIDE 2 MG TABLET PO SCH ×2 (12:42→20:56)
[2021-01-15] MEDS: ASPIRIN CHEWABLE 81 MG TABLET. PO SCH (12:42)
[2021-01-15] MEDS: LISINOPRIL 20 MG TABLET PO SCH ×2 (12:42→20:56)
[2021-01-15 12:43] LABS: HEMOGLOBIN ISTAT 15.3 gm/dL
[2021-01-15] MEDS: ATORVASTATIN CALCIUM 20 MG TABLET PO SCH (12:45)
[2021-01-15] MEDS: NICOTINE 14MG PATCH. TD SCH ×2 (12:48→20:56)
[2021-01-15] MEDS: hydrOXYzine PAMOATE 25 MG CAPSULE PO SCH ×2 (14:00→20:56)
[2021-01-15 17:39] LABS: ALBUMIN 2.9 g/dL (3.4-5.0); ALBUMIN/GLOBULIN RATIO 0.8 (1.0-1.7); CREATININE 0.9 mg/dL (0.7-1.3); GFR 104.9; TOTAL PROTEIN 6.5 g/dL (6.4-8.2)
[2021-01-15 17:40] LABS: POTASSIUM 4.2 mmol/L (3.5-5.1); TOTAL BILIRUBIN 0.6 mg/dL (0.2-1.0)
[2021-01-15] MEDS ORDERED: CONTRAST GIVEN. MC PRN (20:15)
[2021-01-15] MEDS: ACETAMINOPHEN 325 MG TABLET PO PRN (20:54)
[2021-01-15] MEDS: INSULIN GLARGINE SYRINGE. SQ SCH (20:56)
[2021-01-15] MEDS: clonazePAM 2 MG TABLET PO PRN (20:56)
[2021-01-15] MEDS ORDERED: hydrALAZINE 20 MG/ML VIAL. IV PRN (22:00)
[2021-01-15] MEDS ORDERED: METOPROLOL TART IMMED RELEASE 50 MG TABLET PO ONE (22:00)
--- NOTE | 2021-01-15 23:08 | PN ---
SUBJECTIVE: The patient is a 60-year-old -[place] male patient again was admitted with complaint of shortness of breath and generally not feeling well. He has tingling and numbness in his both lower extremities and upper extremities. He was admitted with dehydration and mild diabetic ketoacidosis, lactic acidosis, hyponatremia, hypokalemia and hypomagnesemia. He was treated with IV fluid and initially insulin drip that was switched to his just insulin sliding scale and the patient did very well. His lab work showed that his lactic acid has resolved, came down from 4.9-1.8. His anion gap has closed and his kidney function has also improved and the creatinine came down from 1.2 to 0.9. Unfortunately, the patient continued to have this tingling and numbness involving both lower and upper extremities and the lower extremities convulsed, his lower extremities from the thigh down, another typical distribution of diabetic polyneuropathy and also involves both hands without actually any weakness. He has also very labile hypertension and generalized weakness. PHYSICAL EXAMINATION: GENERAL: When I examined him this afternoon, he was sitting slightly propped up in bed, in no apparent distress. There is no pallor, jaundice or cyanosis from thyromegaly. No jugular venous distention. No lower limb edema. VITAL SIGNS: His heart rate was 86, blood pressure was 159/106, temperature was 98.7, respiratory rate was 18 and oxygen saturation was 100% on 1 L of oxygen. HEAD, EYES, EARS, NOSE, AND THROAT: Normocephalic, atraumatic. NECK: Supple. HEART: Showed normal first and second heart sounds. No gallop, rub or murmur. CHEST: Clear to auscultation, no crepitation or rhonchi. ABDOMEN: Distended, soft, nontender. NEUROLOGIC: He is awake, alert, responding appropriately. Cranial nerves intact. He moves extremities without difficulty. His intake was 7770, output was 2800. LABORATORY DATA: As of this morning, his white cell count was 4900, hemoglobin 15, hematocrit 45, MCV 91, and platelet count of 149,000. His chemistry showed a serum sodium 137, potassium 4.2, chloride 101, bicarbonate 23, anion gap of 8, BUN 8, creatinine was 0.8 and glucose was 239. ASSESSMENT: 1. Dehydration and mild diabetic ketoacidosis as well as lactic acidosis, resolved. 2. Hyponatremia, resolved. 3. Hypomagnesemia, resolved. 4. Hypokalemia, resolved. The patient, however, continued to have some tingling and numbness in both lower and upper extremities in a generalized distribution. He has also labile hypertension. PLAN: My plan is to consult the neurologist, Dr. Reyes to see him and to see whether this is really some form of Guillain-Kelly? syndrome or some form of generalized neuropathy that is not typical of the diabetic polyneuropathy. JULIÁN DR: Edward TID: [id number]
[2021-01-16] VITALS (11 sets, daily range): BP systolic 121–169; BP diastolic 72–102
[2021-01-16] MEDS: IV NORMAL SALINE 1,000ML 1,000 ML IV SCH ×2 (02:35→09:15)
[2021-01-16] MEDS: METOPROLOL TARTRATE 5 MG/5 ML VIAL. IV SCH ×3 (03:00→11:00)
[2021-01-16] MEDS: INSULIN LISPRO 300 UNITS/3 ML VIAL. SQ SCH (08:25)
--- NOTE | 2021-01-16 08:52 | PDOC ---
CARDIO Progress Notes Date & Time Date of Service DATE: 01/16/21 TIME: 08:52 Time of Evaluation 08:52 Subjective Notes no chest pain, palpitations, dizziness. Vitals Vitals Vital Signs Date Time Temp Pulse Resp B/P (MAP) Pulse Ox O2 Delivery O2 Flow Rate FiO2 01/16/21 07:40 88 20 150/97 (114) Room Air 01/16/21 05:30 98.0 97 01/15/21 12:00 1.0 Weight Weight [ ] Input and Output I.O. Intake and Output 01/16/21 07:00 Intake Total 1350 ml Output Total 4700 ml Balance -3350 ml Intake Oral 1350 ml Output Urine Total 4700 ml # Bowel Movements 1 Laboratory Labs Laboratory Tests Test 01/14/21 11:12 01/14/21 11:57 01/14/21 12:47 01/14/21 14:00 White Blood Count 7.8 x10^3/uL (4.0-11.0) Red Blood Count 5.45 x10^6/uL (4.30-5.70) Hemoglobin 16.8 g/dL (13.0-17.5) Hematocrit 48.4 % (39.0-53.0) Mean Corpuscular Volume 89 fL (79-100) Mean Corpuscular Hemoglobin 31 pg (25-35) Mean Corpuscular Hemoglobin Concent 35 g/dL (31-37) Red Cell Distribution Width 14.4 % (11.5-14.5) Platelet Count 206 x10^3/uL (140-400) Neutrophils (%) (Auto) 68 % (31-73) Lymphocytes (%) (Auto) 22 % (24-48) Monocytes (%) (Auto) 10 % (0-9) Eosinophils (%) (Auto) 0 % (0-3) Basophils (%) (Auto) 1 % (0-3) Neutrophils # (Auto) 5.3 x10^3uL (1.8-7.7) Lymphocytes # (Auto) 1.7 x10^3/uL (1.0-4.8) Monocytes # (Auto) 0.8 x10^3/uL (0.0-1.1) Eosinophils # (Auto) 0.0 x10^3/uL (0.0-0.7) Basophils # (Auto) 0.1 x10^3/uL (0.0-0.2) Sodium Level 131 mmol/L (136-145) Potassium Level 3.2 mmol/L (3.5-5.1) Chloride Level 89 mmol/L (98-107) Carbon Dioxide Level 19 mmol/L (21-32) Anion Gap 23 (6-14) Blood Urea Nitrogen 12 mg/dL (8-26) Creatinine 1.2 mg/dL (0.7-1.3) Estimated GFR (Cockcroft-Gault) 75.2 BUN/Creatinine Ratio 10 (6-20) Glucose Level 260 mg/dL (70-99) Calcium Level 8.6 mg/dL (8.5-10.1) Total Bilirubin 1.1 mg/dL (0.2-1.0) Aspartate Amino Transf (AST/SGOT) 64 U/L (15-37) Alanine Aminotransferase (ALT/SGPT) 82 U/L (16-63) Alkaline Phosphatase 103 U/L (46-116) Creatine Kinase 192 U/L (39-308) Troponin I Quantitative < 0.017 ng/mL (0-0.055) VP-Pwu-G-Type Natriuretic Peptide 162 pg/mL (0-124) Total Protein 7.4 g/dL (6.4-8.2) Albumin 3.6 g/dL (3.4-5.0) Albumin/Globulin Ratio 0.9 (1.0-1.7) Salicylates Level 3.1 mg/dL (2.8-20.0) Salicylate Last Dose Date Unknown Salicylate Last Dose Time Unknown Ethyl Alcohol Level < 10 mg/dL (0-10) Prothrombin Time 12.1 SEC (9.4-11.4) Prothromb Time International Ratio 1.2 (0.9-1.1) Activated Partial Thromboplast Time 27 SEC (23-33) Magnesium Level 1.5 mg/dL (1.8-2.4) Thyroid Stimulating Hormone (TSH) 1.402 uIU/mL (0.358-3.740) Acetone Level Neg (NEG) Urine Collection Type Unknown Urine Color Yellow Urine Clarity Clear Urine pH 5.0 Urine Specific [place] 1.025 Urine Protein 100 mg/dl (NEG-TRACE) Urine Glucose (UA) >=1000 mg/dL (NEG) Urine Ketones (Stick) 40 mg/dL (NEG) Urine Blood Large (NEG) Urine Nitrite Neg (NEG) Urine Bilirubin Neg (NEG) Urine Urobilinogen Dipstick 0.2 mg/dL (0.2 mg/dL) Urine Leukocyte Esterase Neg (NEG) Urine RBC 6-10 /HPF (0-2) Urine WBC 0 /HPF (0-4) Urine Squamous Epithelial Cells Occ /LPF Urine Bacteria 0 /HPF (0-FEW) Urine Opiates Screen Neg (NEG) Urine Methadone Screen Neg (NEG) Urine Barbiturates Neg (NEG) Urine Phencyclidine Screen Neg (NEG) Urine Amphetamine/Methamphetamine Neg (NEG) Urine Benzodiazepines Screen Neg (NEG) Urine Cocaine Screen Neg (NEG) Urine Cannabinoids Screen Neg (NEG) Urine Ethyl Alcohol Neg (NEG) Bedside Venous pH 7.50 (7.32-7.42) Bedside Venous pCO2 28 mmHg (41-51) Bedside Venous pO2 41 mmHg (20-40) Venous Blood HCO3 21 mmol/L (24-28) POC Venous O2 Saturation (Wesley) 83 % Bedside FiO2 21 Test 01/14/21 14:49 01/14/21 16:22 01/14/21 17:54 01/14/21 18:00 Glucose (Fingerstick) 232 mg/dL (70-99) 209 mg/dL (70-99) Troponin I Quantitative < 0.017 ng/mL (0-0.055) Lactic Acid Level 4.9 mmol/L (0.4-2.0) Test 01/14/21 20:33 01/14/21 21:35 01/14/21 22:40 01/15/21 06:05 Glucose (Fingerstick) 172 mg/dL (70-99) Lactic Acid Level 1.8 mmol/L (0.4-2.0) Sodium Level 131 mmol/L (136-145) Potassium Level 3.7 mmol/L (3.5-5.1) Chloride Level 99 mmol/L (98-107) Carbon Dioxide Level 24 mmol/L (21-32) Anion Gap 8 (6-14) Blood Urea Nitrogen 10 mg/dL (8-26) Creatinine 0.9 mg/dL (0.7-1.3) Estimated GFR (Cockcroft-Gault) 104.9 Glucose Level 146 mg/dL (70-99) Calcium Level 7.8 mg/dL (8.5-10.1) Troponin I Quantitative 0.024 ng/mL (0-0.055) White Blood Count 4.9 x10^3/uL (4.0-11.0) Red Blood Count 5.06 x10^6/uL (4.30-5.70) Hemoglobin 15.6 g/dL (13.0-17.5) Hematocrit 45.9 % (39.0-53.0) Mean Corpuscular Volume 91 fL (79-100) Mean Corpuscular Hemoglobin 31 pg (25-35) Mean Corpuscular Hemoglobin Concent 34 g/dL (31-37) Red Cell Distribution Width 14.5 % (11.5-14.5) Platelet Count 149 x10^3/uL (140-400) Neutrophils (%) (Auto) 56 % (31-73) Lymphocytes (%) (Auto) 30 % (24-48) Monocytes (%) (Auto) 13 % (0-9) Eosinophils (%) (Auto) 0 % (0-3) Basophils (%) (Auto) 0 % (0-3) Neutrophils # (Auto) 2.7 x10^3uL (1.8-7.7) Lymphocytes # (Auto) 1.5 x10^3/uL (1.0-4.8) Monocytes # (Auto) 0.6 x10^3/uL (0.0-1.1) Eosinophils # (Auto) 0.0 x10^3/uL (0.0-0.7) Basophils # (Auto) 0.0 x10^3/uL (0.0-0.2) Test 01/15/21 08:08 01/15/21 12:01 01/15/21 12:04 01/15/21 16:47 Glucose (Fingerstick) 192 mg/dL (70-99) 224 mg/dL (70-99) 217 mg/dL (70-99) Bedside Hemoglobin 15.3 gm/dL Bedside Hematocrit 46 % Bedside Sodium 137 mmol/L (135-145) Sodium Level 135 mmol/L (136-145) Bedside Potassium 4.2 mmol/L (3.5-5.0) Potassium Level 4.2 mmol/L (3.5-5.1) Bedside Chloride 101 mmol/L (98-110) Chloride Level 102 mmol/L (98-107) Carbon Dioxide Level 22 mmol/L (21-32) Bedside Total CO2 23 mmol/L (23-32) Anion Gap 18 mmol/L (6-14) Bedside Blood Urea Nitrogen 8 mg/dL (8-26) Blood Urea Nitrogen 9 mg/dL (8-26) Creatinine 0.9 mg/dL (0.7-1.3) Bedside Creatinine 0.8 mg/dL (0.5-1.4) Estimated GFR (Cockcroft-Gault) 104.9 BUN/Creatinine Ratio 10 (6-20) Glucose Level 239 mg/dL (60-99) Calcium Level 8.0 mg/dL (8.5-10.1) Bedside Ionized Calcium (Wesley) 1.05 mmol/L (1.13-1.32) Magnesium Level 1.9 mg/dL (1.8-2.4) Total Bilirubin 0.6 mg/dL (0.2-1.0) Aspartate Amino Transf (AST/SGOT) 132 U/L (15-37) Alanine Aminotransferase (ALT/SGPT) 139 U/L (16-63) Alkaline Phosphatase 125 U/L (46-116) Total Protein 6.5 g/dL (6.4-8.2) Albumin 2.9 g/dL (3.4-5.0) Albumin/Globulin Ratio 0.8 (1.0-1.7) Test 01/15/21 20:20 01/16/21 00:44 Glucose (Fingerstick) 195 mg/dL (70-99) 217 mg/dL (70-99) Physical Exams HEENT: Neck Supple W Full Motion Chest: Symmetric Lungs: Clear to Auscultation Heart: RRR Abdomen: Soft N/T Extremities: No Edema Neurology: alert, oriented, follow commands Assessment Assessment 1. Palpitations, arrhythmia; reports h/o "irregular heartbeat". Tele noted with ST/SA and periods of atrial tachycardia noted. No clear AFIB. Now maintaining SR. 2. CAD; details unknown. 3. Accelerated hypertension; better controlled 4. Hyperlipidemia; statin 5. Diabetes, II 6. Hypomagnesemia; replaced 7. Lactic acidosis 8. Transaminitis 9. Tobaccoism; discussed/encouraged cessation 10. Noncompliance; discussed importance of compliance with medical therapy. Recommendations Metoprolol for rate control Lisinopril for BP control ASA therapy Secondary prevention Supportive care SS following Consider outpatient ischemic evaluation and event monitor Follow of up in office with Dr. Benavidez. Contact information has been provided FINA PRINCE APRN Jan 16, 2021 08:52
[2021-01-16] MEDS ORDERED: METOPROLOL TART IMMED RELEASE 50 MG TABLET PO SCH (09:00)
[2021-01-16] MEDS: ASPIRIN CHEWABLE 81 MG TABLET. PO SCH (10:24)
[2021-01-16] MEDS: ATORVASTATIN CALCIUM 20 MG TABLET PO SCH (10:24)
[2021-01-16] MEDS: hydroCHLOROthiazide 12.5 MG CAPSULE PO SCH (10:24)
[2021-01-16] MEDS: GLIMEPIRIDE 2 MG TABLET PO SCH (10:25)
[2021-01-16] MEDS: LISINOPRIL 20 MG TABLET PO SCH (10:25)
[2021-01-16] MEDS: ENOXAPARIN ** NOTE DOSE ** SYRINGE SQ SCH (10:26)
[2021-01-16] MEDS: hydrOXYzine PAMOATE 25 MG CAPSULE PO SCH (10:27)
[2021-01-16] MEDS ORDERED: metFORMIN XR 500 MG TAB.ER.24H PO SCH (17:00)
--- NOTE | 2021-01-16 19:28 | DS ---
DATE OF DISCHARGE: 01/16/2021 ATTENDING PHYSICIAN: Jacqueline Olivares M.D. FINAL DISCHARGE DIAGNOSES: 1. Dehydration. 2. Labile hypertension, poorly controlled. 3. Hypernatremia, resolved. 4. Hypokalemia, resolved. 5. Type 2 diabetes. 6. Vague symptoms of weakness due to underlying psychiatric issues. 7. Chronic pain syndrome. HISTORY AND PHYSICAL: The patient is a 60-year-old gentleman well known to us. I had him in the hospital for admission just 6 weeks ago. He was admitted with shortness of breath, not feeling well, very vague symptoms. He was diabetic. He had mild hypokalemia, hyponatremia, which is all treated. PHYSICAL EXAMINATION: Please see the dictated note. PERTINENT LABORATORY AND X-RAY STUDIES: His admission hemoglobin was 16.8 g/dL in a hemoconcentrated state, white count 7800, repeated was down to 15.3 g/dL. Sodium was 137, potassium replaced up to 4.2 mEq. The creatinine was 0.8 mg %. Nonfasting blood sugar 239. Repeated it was in the mid 100s. COURSE IN THE HOSPITAL: The patient was admitted. Blood pressure was high. He was started on his scheduled metoprolol as well as lisinopril. He also had consultation by both cardiology and neurology services. Their recommendation is on the chart. By the third hospital day, he was eating well. He still had vague symptoms of weakness, but the exam was by far more than what we found and was fairly normal. Please refer to Dr. Reyes's note. At this time, he is discharged home. I wrote scripts for his meds, which are on the inexpensive 4 dollars per month list. He should continue his aspirin 81 mg daily, Lipitor 40 mg daily, glimepiride 2 mg b.i.d., lisinopril increased to 40 mg p.o. daily, metformin 1000 mg b.i.d., metoprolol tartrate 100 mg b.i.d. and lisinopril as prescribed. In addition, he requested a refill for his Klonopin. I did set boundaries. I would give him a 2-week supply. I wrote for Klonopin 2 mg b.i.d., #30 with no refills. He was discharged today in stable condition. We got him a ride to go home. He is under a lot of stress and I tried to reassure him that his symptoms here are not impending doom as he was concerned. I strongly recommended that he is compliant with his meds. He should find a local primary care doctor since he is from out of town for followup visit and recheck blood pressure in the next 2-3 weeks. He was discharged then from our hospital in stable condition with explicit drug and followup care. TRAVIS DR: Ceci TID: [id number]
== END 2021-01-16 12:00 | disposition home or self-care (01) | DRG 640 ==
LOC: ER 10:50 → 1 SOUTH 15:07 → ER 16:05 → ICU 19:10
PROVIDERS: ADMIT Internal Medicine; ATTEND Internal Medicine
DX: E86.0 Dehydration (principal); E11.10 Type 2 diabetes mellitus with ketoacidosis without coma; E87.1 Hypo-osmolality and hyponatremia; E11.42 Type 2 diabetes mellitus with diabetic polyneuropathy; E78.5 Hyperlipidemia, unspecified; E83.42 Hypomagnesemia; E87.6 Hypokalemia; E87.8 Other disorders of electrolyte and fluid balance, not elsewhere classified; F17.210 Nicotine dependence, cigarettes, uncomplicated; I48.91 Unspecified atrial fibrillation; G89.4 Chronic pain syndrome; I10 Essential (primary) hypertension; I25.10 Atherosclerotic heart disease of native coronary artery without angina pectoris; I25.2 Old myocardial infarction; Z79.01 Long term (current) use of anticoagulants; Z79.82 Long term (current) use of aspirin; Z79.84 Long term (current) use of oral hypoglycemic drugs; Z79.899 Other long term (current) drug therapy; Z80.9 Family history of malignant neoplasm, unspecified; Z82.49 Family history of ischemic heart disease and other diseases of the circulatory system; Z82.5 Family history of asthma and other chronic lower respiratory diseases; Z83.3 Family history of diabetes mellitus; Z86.74 Personal history of sudden cardiac arrest; Z91.14 Patient's other noncompliance with medication regimen
CPT/HCPCS: 36415; 71045; 71275; 80047; 80048; 80053; 80307; 80329; 81001; 82010; 82550; 82803; 82947; 83605; 83735; 83880; 84443; 84484; 85025; 85610; 85730; 93005; 93970; 96361; 96372; 96374; 99406; G0480; J1160; J1650; J1815; J1885; J3475; J3490; J7120; Q0177; Q9967; 97530; 99285-25; J7030